=== PATIENT | male | born 1965 | race Caucasian/White ===

== ENCOUNTER 2017-04-30 20:58 | Emergency (ER) | payer OTHER ==
[~2017-04-30] VITALS: Ht 177.8 cm; Wt 156.8 kg
[~2017-04-30 20:58] MED LIST: ADVAIR DISK2 IN; ALBUTEROL S2.5 MG/.5 IN; ALBUTEROL SUL0.083 % IN; AMOX/K CLAV875 M1 PO; ANAPROX275 MG OR; BACTRIM DS1 TAB PO; BENTYL10 MG PO; CELEXA20 M1 PO; CEPHALEXIN500 M1 OR; CIPRO500 MG OR; CIPROFLOXACN500 MG PO; CLOBETASOL0.053 EX; DILTIAZEM120 M2 OR; DIPROLENE15 G1 TOP; DOXYCYC MONO100 M2 PO; DOXYCYCL HYC100 MG PO; EC-NAPROSYN500 MG OR; EMBEDA 20-0.8 M1 CAP PO; FLEXERIL PO; FLONASE NASAL50 MCG; FLOVENT HFA110 MCG IN; FLUCINONIDE TOP; FLUOCINONIDE0.051 EX; FLUOCINONIDE0.053 EX; FLUOCINONIDE0.054 TOP; HYDROCODONE BIT1 TA1 PO; HYDROCORT0.5 % EX; KEFLEX500 M1 PO; LASIX 10 MG10 MG/TA1 PO; LEVAQUIN750 MG PO; LIDOCAINE VISC20 ML EX; LORTAB 10 PO; LORTAB 5 OR; LORTAB 5/3255 MG PO; LORTAB 7.5 OR; LORTAB5 OR; MACROBID100 MG PO; MEDDOSEPAK OR; MEDDOSEPAK PO; METFORMIN500 MG PO; METO50TA52 PO; METOPROL TAR25 M1 PO; METOPROL TAR25 MG PO; METOPROLOL25 M1 PO; MORPHINE SUL30 M3 PO; MOTRIN800 MG OR; MUCINEX600 MG PO; NAPROSYN500 MG PO; NAPROXEN EC500 MG OR; NAPROXEN PO; NAPROXEN500 MG PO; NITROGLYCER0.1 MG/HR TD; NITROGLYCER0.4 MG SL; NITROGLYCERIN; NITROSTAT0.4 MG; NITROSTAT0.4 MG SL; NO MEDS; NO MORE TANG; NORCO1 TA1 PO; NORCO1 TAB; NORCO1 TAB PO; NYSTATIN100000 M1 PO; OXYCO/APAP1 TA5 PO; OXYCODONE HCL15 MG PO; OXYCODONE15 MG OR; PERCOCET 10/31 COMBO PO; PERCOCET 5/321 COMBO PO; PERCOCET 5/325M1 TAB PO; PERCOCET1 TA2 OR; PREDNISONE10 MG PO; PREDNISONE20 MG PO; PRILOSEC40 MG; PROVENTIL HFA IN; PROVENTIL INH17 GM IN; PROVENTIL0.083 % IN; RANITIDINE150 M1 PO; ROBITUSSIN AC10 ML PO; SIMETHICONE80 M2 PO; TETRACYCLINE250 MG PO; TOPAMAX100 MG PO; TOPAMAX200 MG OR; TRAMADOL HCL50 MG PO; TRIAMCINOLON0.11 EX; ULTRAM50 M1 PO; VENTOLIN HFA IN; VENTOLIN2 MG OR; VICODIN HP1 TA1 PO; ZANTAC150 MG OR; ZITHROMAX250 MG PO; ZITHROMAX500 MG PO; ZOFRAN4 MG OR; ZPAK OR; ZPAK PO; robitussin ac OR
[2017-04-30] MEDS ORDERED: LORTAB 10-325 M1 TAB PO (21:33)
[2017-04-30] MEDS ORDERED: MORPHINE SUL30 M3 PO (21:34)
[2017-04-30] MEDS ORDERED: LOPRESSOR 550 MG/TAB PO (21:35)
[2017-04-30] MEDS ORDERED: NAPROSYN500 MG PO (21:35)
[2017-04-30] MEDS ORDERED: TRIAMCINOLON OI80 GM TOP (21:39)
[2017-05-01 01:17] VITALS: BP 106/70
== END 2017-05-01 01:17 | disposition home or self-care (01) | DRG 93 ==
LOC: ED 20:58
DX: G89.29 Other chronic pain (principal); M54.5 Low back pain; V89.0XXA Person injured in unspecified motor-vehicle accident, nontraffic, initial encounter; Y93.89 Activity, other specified; Y92.481 Parking lot as the place of occurrence of the external cause

== ENCOUNTER 2017-05-31 01:45 | Emergency (ER) | payer OTHER ==
[~2017-05-31] VITALS: Ht 177.8 cm; Wt 154.6 kg
[~2017-05-31 01:45] MED LIST changes: +LOPRESSOR 550 MG/TAB PO; +LORTAB 10-325 M1 TAB PO; +TRIAMCINOLON OI80 GM TOP
[2017-05-31] MEDS ORDERED: Levaquin PO (02:41)
[2017-05-31 03:12] VITALS: BP 150/82
== END 2017-05-31 03:03 | disposition home or self-care (01) | DRG 153 ==
LOC: ED 01:45
DX: J32.9 Chronic sinusitis, unspecified (principal); E66.01 Morbid (severe) obesity due to excess calories; J44.9 Chronic obstructive pulmonary disease, unspecified; G89.29 Other chronic pain; R01.1 Cardiac murmur, unspecified; M54.9 Dorsalgia, unspecified; I25.2 Old myocardial infarction; M19.90 Unspecified osteoarthritis, unspecified site; G47.30 Sleep apnea, unspecified

== ENCOUNTER 2017-07-06 16:55 | Observation (INO) | payer OTHER ==
[~2017-07-06] VITALS: Ht 177.8 cm; Wt 150.0 kg
[~2017-07-06 16:55] MED LIST changes: +Levaquin PO
--- NOTE | 2017-07-06 17:03 | NUR ---
PATIENT TO ROOM VIA EMS AND PHYSICIAN AT BEDSIDE FOR EVALUATION
[2017-07-06] MEDS ORDERED: EMBEDA 20-0.8 M1 CAP PO (17:07)
[2017-07-06] MEDS ORDERED: PROVENTIL0.083 % IN (17:08)
--- NOTE | 2017-07-06 17:10 | NUR ---
PATIENT REPORTS 8/10 CRAMPING LOWER ABD PAIN. ABD SOFT GENERALIZED TENDERNESS NOTED TO ENTIRE ABD UPON PALPATION. PATIENT DENIES ANY SOB OR CP AT THIS TIME. PATIENT REPORTS A LOT OF DIARRHEA STARTING THIS AM. MD AT BEDSIDE TO EVALUATE PATIENT. PATIENT AWARE OF PLAN OF CARE AND WAIT TIME. CALL ELKINS WITHIN REACH, WILL CONTINUE TO MONITOR.
[2017-07-06 17:20] LABS: HEMATOCRIT 46.3 % (39.0-50.0); HEMOGLOBIN 16.1 g/dl (14.0-18.0); IMMATURE GRANULOCYTES 0.4 % (0.0-1.0); MEAN CELL VOLUME 90.3 fL CALC (80.0-100.0); MEAN CORPUSCULAR HGB 31.4 pG CALC (26.0-32.0); MEAN CORPUSCULAR HGB CONC 34.8 g/L CALC (32.0-36.0); NEUT# 10.36 thou/uL (1.82-7.42); RED BLOOD COUNT 5.13 mill/uL (4.70-6.10); RED CELL DISTRI WIDTH 12.6 % (11.5-15.5)
--- NOTE | 2017-07-06 17:40 | NUR ---
ASSISTED PATIENT TO BEDSIDE COMMODE. STOOL SPECIMEN COLLECTED. STOOL NOTED TO BE WATERY AND BROWN IN COLOR. PATIENT REPORTING PAIN IS NOW 3/10 AND DENIES ANY NAUSEA AT THIS TIME. PATIENT DENIES ANY SOB AT THIS TIME, PATIENT A&O X3. CALL ELKINS WITHIN REACH, WILL CONTINUE TO MONITOR.
--- NOTE | 2017-07-06 18:01 | NUR ---
RESPIRATORY AT BEDSIDE TO PLACE PATIENT ON BIPAP. WILL MONITOR FOR EFFECT.
[2017-07-06 18:34] LABS: ALKALINE PHOSPHATASE 104 u/l (38-126); AMYLASE 70 u/l (30-110); BILIRUBIN, TOTAL 0.8 mg/dL (0.0-1.4); BUN 29 mg/dL (9-20); BUN/CREATININE RATIO 29 (12-20 (CALC)); CALCIUM 9.4 mg/dL (8.4-10.2); CARBON DIOXIDE 26 mmol/l (22-30); CHLORIDE 100 mmol/l (95-108); GFR > 60 ML/MIN (>=60 (CALC)); GFR FOR AFR.AMER. > 60 ML/MIN (>=60 (CALC)); GLUCOSE 338 mg/dL (75-110); LIPASE 211 u/l (23-300); SGOT/AST 26 u/l (17-59); SGPT/ALT 34 u/l (21-72); SODIUM 135 mmol/l (137-146); TOTAL PROTEIN 8.1 g/dL (6.3-8.2)
[2017-07-06 18:36] LABS: ANION GAP 15 (6-22 (CALC)); POTASSIUM 5.5 mmol/l (3.5-5.1)
[2017-07-06 18:44] LABS: C. DIFFICILE TOXIN A&B NEGATIVE (NEGATIVE)
--- NOTE | 2017-07-06 18:53 | NUR ---
REPORT GIVEN TO RICH CARL LPN.
--- NOTE | 2017-07-06 18:55 | NUR ---
INTRODUCED SELF TO PT. PT CURRENTLY ON BIPAP PER RT SETTINGS. SPO2 AT 100%. AWAITING ON RADIOLOGY FOR PENDING CT.
[2017-07-06 19:01] LABS: URINE BLOOD DIPSTICK NEGATIVE (NEGATIVE); URINE CLARITY CLEAR; URINE COLOR YELLOW; URINE GLUCOSE - DIPSTICK >=1000 mg/dL (NEGATIVE); URINE KETONE NEGATIVE (NEGATIVE); URINE LEUK ESTERASE NEGATIVE (NEGATIVE); URINE NITRITE - DIPSTICK NEGATIVE (Negative); URINE PROTEIN - DIPSTICK TRACE mg/dL (NEG-TRACE); URINE SPECIFIC GRAVITY >=1.030; URINE UROBILINOGEN - DIPSTICK 0.2 E.U./dL (0.2)
[2017-07-06 19:04] LABS: URINE BILIRUBIN - DIPSTICK SMALL (NEGATIVE)
--- NOTE | 2017-07-06 19:20 | NUR ---
RT B/S FOR REPEAT ABG.
--- NOTE | 2017-07-06 20:24 | NUR ---
PT RESTING ON STRETCHER WITH EYES CLOSED. BIPAP MACHINE IN PLACE WITH SETTINGS PER RT. DENIES ANY NEEDS AT THIS TIME. AWAITING CT RESULTS.
--- NOTE | 2017-07-06 21:08 | NUR ---
admission history obtained; pt a&o X3; chief complaint of abd pain associated with nausea and diarrhea starting 07/06/17; states he has been having diarrhea all day; pt also states some chest pain on arrival to ER; pt points to left chest wall under breast; deny sob; medical hx reviewed; pt admits to sleep apnea but deny use of home cpap; pt also deny diabetes; plan of care/ meds explained; temporary hold in ER; will continue to monitor
[2017-07-06 21:27] LABS: COCAINE NEGATIVE (NEGATIVE)
[2017-07-06 21:28] LABS: BARBITURATES NEGATIVE (NEGATIVE); METHADONE NEGATIVE (NEGATIVE); OXCYCODONE POSITIVE (NEGATIVE); TETRAHYDROCANNABIONOL POSITIVE (NEGATIVE); TRICYLIC ANTIDEPRESSANTS NEGATIVE (NEGATIVE)
--- NOTE | 2017-07-06 21:31 | NUR ---
accucheck of 308; pt cont to deny being a diabetic; pt states his blood sugar is high when he is "dehydrated"; pt informed per medical writer he will be medicated with insulin as per orders; pt initially refused stating "I don't have diabetes"; this medical writer explained importance of controlled blood glucose and pt has agreed to accept levemir;
--- NOTE | 2017-07-06 21:39 | NUR ---
PT RESTING ON STRETCHER WITH BIPAP IN PLACE. DENIES ANY NEEDS AT THIS TIME. WILL CONTINUE TO MONITOR.
--- NOTE | 2017-07-06 22:08 | NUR ---
REPORT GIVEN TO RICH MILLER.
--- NOTE | 2017-07-06 22:28 | NUR ---
Admission Note Report Given to: RICH MILLER Transported by: Wheelchair X Stretcher Transported with: X Nurse X Transporter X Patent IV X O2 Senior Trial Attorney PT TRANSPORTED TO ICU VIA STRETCHER ACCOMPANIED BY RT AND RICH MILLER.
--- NOTE | 2017-07-06 22:30 | NUR ---
male pt transferred to ICU bed 1 via stretcher accompanied by web content writerNaz LPN and RT Armas in stable condition; pt deny ability to ambulate; admits to ambulating at home with cane (provided); pt then yells at staff stating "I'm in pain and you expect me to walk"; pt transferred self from stretcher to bed; assessment completed; pt alert and oriented; admits to aching/cramps to lower abd; no n/v noted per web content writer at this time; resp even and unlabored; slight sob noted with exertion; lungs clear/diminished bases; skin color wnl; bipap intact with 28% o2; hr reg; strong pulses; no edema noted; sb on monitor; abd soft/obese with bs present; pt admits to diarrhea; admits to voiding without complication; no urine to inspect at this time; #20 ems patent to lac with lr infusing as per orders; scabs/scratches noted to abd area and arms; pt refusing to remove jeans (unable to assess coccyx); plan of care explained; call light within reach; will continue to monitor
[2017-07-06 22:45] VITALS: BP 99/58
--- NOTE | 2017-07-06 22:45 | NUR ---
pt very frustrated with nursing staff; states "I've been here for 12 damn hours and no one has given me any more pain medicine"; this sign writer hand informed pt, Morphine ER was offered but refused; pt yells at sign writer hand "morphine is not for pain"; pt admits to taking Morphine ER to "bridge the gap" and taking hydrocodone for pain; pt threathens to leave AMA; pt rights reiterated; orders explained and lortab administered; pt then request metoprolol to be given at midnight; medication schedule explained; sign writer hand also explained bradycardia; pt states "well I'll just take one out of my bag"; home medications removed from room after verifying quantity of narcotics in view of pt; will continue to monitor
[2017-07-06 23:00] VITALS: BP 116/53
[2017-07-06 23:15] VITALS: BP 97/58
[2017-07-06 23:30] VITALS: BP 97/56
[2017-07-06 23:45] VITALS: BP 90/55
--- NOTE | 2017-07-06 23:59 | NUR ---
resting with eyes closed; no distress noted; resp even and unlabored; bipap maintained with 28% FiO2; iv patent; sb on monitor; call light within reach; will continue to monitor
[2017-07-07] VITALS (9 sets, daily range): BP systolic 82–130; BP diastolic 51–66
--- NOTE | 2017-07-07 02:03 | NUR ---
asleep; easily aroused for assessment of bp; deny needs; iv patent; no redness or edema noted at site; sb on monitor; bipap intact; call light within reach; will continue to monitor
--- NOTE | 2017-07-07 04:03 | NUR ---
asleep; easily aroused; no distress noted; pt offers no complaints; hydrocodone offered with refusal/ denies pain; po fluids provided as per request; iv patent; no redness or edema noted; sb on monitor; deny need to urinate; call light within reach; will continue to monitor
--- NOTE | 2017-07-07 05:07 | NUR ---
awake; requesting "a break from that mask"; bipap removed; po fluids provided;
--- NOTE | 2017-07-07 05:20 | NUR ---
laborer wood preserving plant at bedside
[2017-07-07 05:40] LABS: HEMATOCRIT 43.1 % (39.0-50.0); HEMOGLOBIN 14.6 g/dl (14.0-18.0); MEAN CELL VOLUME 92.7 fL CALC (80.0-100.0); MEAN CORPUSCULAR HGB 31.4 pG CALC (26.0-32.0); MEAN CORPUSCULAR HGB CONC 33.9 g/L CALC (32.0-36.0); RED BLOOD COUNT 4.65 mill/uL (4.70-6.10); RED CELL DISTRI WIDTH 12.8 % (11.5-15.5)
--- NOTE | 2017-07-07 05:41 | NUR ---
refusing bipap to be reapplied; o2 sat 91-95% ra; no resp distress noted
[2017-07-07 05:49] LABS: ANION GAP 14 (6-22 (CALC)); BUN 29 mg/dL (9-20); BUN/CREATININE RATIO 37 (12-20 (CALC)); CALCIUM 8.7 mg/dL (8.4-10.2); CARBON DIOXIDE 25 mmol/l (22-30); CHLORIDE 101 mmol/l (95-108); CREATININE 0.8 mg/dL (0.7-1.3); GFR > 60 ML/MIN (>=60 (CALC)); GFR FOR AFR.AMER. > 60 ML/MIN (>=60 (CALC)); GLUCOSE 253 mg/dL (75-110); MAGNESIUM 1.2 mg/dL (1.6-2.3); POTASSIUM 4.6 mmol/l (3.5-5.1); SODIUM 136 mmol/l (137-146)
--- NOTE | 2017-07-07 06:03 | NUR ---
awake; no distress noted throughout the night; ra; o2 sat 92%; iv patent; sr on monitor; bed in lowest position; call light within reach
--- NOTE | 2017-07-07 06:45 | NUR ---
REPORT RECEIVED FROM RICH MILLER. PT ON BSC, ABLE TO INDEPENDANTLY GET BACK TO BED. DENIES, PAIN, SOB OR DISCOMFORT. VSS. SAFETY REVIEWED, CALL LIGHT WITHIN REACH. INSTRUCTED PT TO CALL FOR ASSISTANCE. PT VERBALIZES UNDERSTANDING.
--- NOTE | 2017-07-07 09:25 | NUR ---
MD IN TO SEE PT AT THIS TIME, DM DISCUSSED AT LENGTH. METFORMIN ORDERED. EDUCATION PRINTED FOR PT AT THIS TIME.
--- NOTE | 2017-07-07 10:30 | NUR ---
PT INFORMED OF DISCHARGE. TELLO PATEL IN TO SEE PT, AND ORDER GLUCOMETER WITH LANCETS AND STRIPS.
[2017-07-07 11:08] LABS: CHOLESTEROL HDL RATIO 4.4 (<4.4 (CALC))
--- NOTE | 2017-07-07 12:45 | NUR ---
PT RESTING WITH EYES CLOSED DENIES PAIN, SOB, OR DISCOMFORT. CALL LIGHT WITHIN REACH. WILL CONTINUE TO MONITOR.
[2017-07-07] MEDS ORDERED: FLORASTOR250 M1 PO (13:14)
[2017-07-07] MEDS ORDERED: ZITHROMAX500 MG PO (13:14)
[2017-07-07] MEDS ORDERED: GLUCOPHAGE500 MG PO (13:14)
--- NOTE | 2017-07-07 16:15 | NUR ---
PT REQUESTING PAIN MEDICATION AT THIS TIME FOR GENERALIZED BACK PAIN; INQUIRED ABOUT RIDE FOR DISCHARGE, WILL HAVE TO WAIT UNTIL AFTER 1700 FOR RIDE R/T WORK SCHEDULES.
--- NOTE | 2017-07-07 18:32 | NUR ---
Discharge instructions given. Patient verbalizes understanding of same. Discharged in stable condition via Wheelchair to Home with family. All belongings sent with pt.
== END 2017-07-07 18:40 | disposition home or self-care (01) | DRG 372 ==
LOC: ED 16:55 → ED-I 20:41 → ED 21:07 → ICU 21:08
PROVIDERS: Emergency Medicine; Nurse Practitioner Family; ADMIT Internal Medicine; ATTEND Internal Medicine
PROC: 5A09357 Assistance with Respiratory Ventilation, Less than 24 Consecutive Hours, Continuous Positive Airway Pressure (ICD-10-PCS; principal; 2017-07-06)
DX: A04.5 Campylobacter enteritis (principal); Z68.42 Body mass index [BMI] 45.0-49.9, adult; J44.9 Chronic obstructive pulmonary disease, unspecified; J96.10 Chronic respiratory failure, unspecified whether with hypoxia or hypercapnia; G47.33 Obstructive sleep apnea (adult) (pediatric); E66.01 Morbid (severe) obesity due to excess calories; R01.1 Cardiac murmur, unspecified; E11.9 Type 2 diabetes mellitus without complications; M16.10 Unilateral primary osteoarthritis, unspecified hip; I10 Essential (primary) hypertension; K21.9 Gastro-esophageal reflux disease without esophagitis; Z91.19 Patient's noncompliance with other medical treatment and regimen
CPT/HCPCS: J3475; Q9967

== ENCOUNTER 2017-11-27 14:20 | Emergency (ER) | payer OTHER ==
[~2017-11-27] VITALS: Ht 177.8 cm; Wt 112.0 kg
[~2017-11-27 14:20] MED LIST changes: +FLORASTOR250 M1 PO; +GLUCOPHAGE500 MG PO
[2017-11-27 15:39] LABS: URINE BILIRUBIN - DIPSTICK NEGATIVE (NEGATIVE); URINE BLOOD DIPSTICK NEGATIVE (NEGATIVE); URINE COLOR YELLOW; URINE GLUCOSE - DIPSTICK 250 mg/dL (NEGATIVE); URINE KETONE TRACE mg/dL (NEGATIVE); URINE LEUK ESTERASE NEGATIVE (NEGATIVE); URINE NITRITE - DIPSTICK NEGATIVE (Negative); URINE PROTEIN - DIPSTICK TRACE mg/dL (NEG-TRACE); URINE SPECIFIC GRAVITY >=1.030; URINE UROBILINOGEN - DIPSTICK 0.2 E.U./dL (0.2)
[2017-11-27 15:40] LABS: URINE CLARITY CLEAR
[2017-11-27] MEDS ORDERED: PYRIDIUM200 MG PO (16:41)
[2017-11-27] MEDS ORDERED: BACTRIM DS1 TAB PO (16:41)
[2017-11-27 17:16] VITALS: BP 122/68
== END 2017-11-27 17:08 | disposition home or self-care (01) | DRG 690 ==
LOC: ED 14:20
PROVIDERS: Emergency Medicine
DX: N34.2 Other urethritis (principal); J43.9 Emphysema, unspecified; J45.909 Unspecified asthma, uncomplicated; Z87.440 Personal history of urinary (tract) infections; R30.9 Painful micturition, unspecified

== ENCOUNTER 2017-12-25 09:23 | Emergency (ER) | payer OTHER ==
[~2017-12-25] VITALS: Ht 177.8 cm; Wt 147.0 kg
[~2017-12-25 09:23] MED LIST changes: +PYRIDIUM200 MG PO
[2017-12-25 09:35] VITALS: BP 109/71
[2017-12-25 10:22] LABS: HEMATOCRIT 45.6 % (39.0-50.0); HEMOGLOBIN 15.8 g/dl (14.0-18.0); IMMATURE GRANULOCYTES 0.4 % (0.0-1.0); MEAN CELL VOLUME 93.8 fL CALC (80.0-100.0); MEAN CORPUSCULAR HGB 32.5 pG CALC (26.0-32.0); MEAN CORPUSCULAR HGB CONC 34.6 g/L CALC (32.0-36.0); NEUT# 6.36 thou/uL (1.82-7.42); RED BLOOD COUNT 4.86 mill/uL (4.70-6.10); RED CELL DISTRI WIDTH 13.3 % (11.5-15.5)
[2017-12-25 10:44] LABS: ALBUMIN 3.6 g/dL (3.2-5.0); ALKALINE PHOSPHATASE 83 u/l (38-126); AMYLASE 73 u/l (30-110); ANION GAP 17 (6-22 (CALC)); BILIRUBIN, TOTAL 0.9 mg/dL (0.0-1.4); BUN 16 mg/dL (9-20); BUN/CREATININE RATIO 19 (12-20 (CALC)); CARBON DIOXIDE 28 mmol/l (22-30); CHLORIDE 99 mmol/l (95-108); CREATININE 0.8 mg/dL (0.7-1.3); GFR > 60 ML/MIN (>=60 (CALC)); GFR FOR AFR.AMER. > 60 ML/MIN (>=60 (CALC)); LIPASE 384 u/l (23-300); POTASSIUM 3.7 mmol/l (3.5-5.1); SGOT/AST 23 u/l (17-59); SGPT/ALT 42 u/l (21-72); SODIUM 140 mmol/l (137-146)
[2017-12-25] MEDS ORDERED: PHENERGAN25 MG/TAB PO (12:55)
[2017-12-25] MEDS ORDERED: BENTYL10 MG PO (12:55)
== END 2017-12-25 13:38 | disposition home or self-care (01) | DRG 392 ==
LOC: ED 09:23
PROVIDERS: Family Medicine
DX: A08.4 Viral intestinal infection, unspecified (principal); J45.901 Unspecified asthma with (acute) exacerbation; R10.84 Generalized abdominal pain

== ENCOUNTER 2018-03-20 15:31 | Emergency (ER) | payer OTHER ==
[~2018-03-20] VITALS: Ht 177.8 cm; Wt 110.0 kg
[~2018-03-20 15:31] MED LIST changes: +PHENERGAN25 MG/TAB PO
[2018-03-20 16:14] LABS: URINE BILIRUBIN - DIPSTICK NEGATIVE (NEGATIVE); URINE BLOOD DIPSTICK NEGATIVE (NEGATIVE); URINE CLARITY CLEAR; URINE COLOR YELLOW; URINE GLUCOSE - DIPSTICK 500 mg/dL (NEGATIVE); URINE KETONE TRACE mg/dL (NEGATIVE); URINE LEUK ESTERASE NEGATIVE (NEGATIVE); URINE NITRITE - DIPSTICK NEGATIVE (Negative); URINE PROTEIN - DIPSTICK NEGATIVE (NEG-TRACE); URINE UROBILINOGEN - DIPSTICK 0.2 E.U./dL (0.2)
[2018-03-20] MEDS ORDERED: APAP/HYDRO325 MG/10 PO (16:18)
[2018-03-20] MEDS ORDERED: PYRIDIUM200 MG PO (16:24)
[2018-03-20] MEDS ORDERED: ZITHROMAX500 MG PO (16:37)
[2018-03-20] MEDS ORDERED: MEDDOSEPAK PO (16:37)
[2018-03-20 16:39] VITALS: BP 127/79
== END 2018-03-20 16:39 | disposition home or self-care (01) ==
LOC: ED 15:31
DX: R30.0 Dysuria (principal); R21 Rash and other nonspecific skin eruption; J45.909 Unspecified asthma, uncomplicated; Z79.891 Long term (current) use of opiate analgesic

== ENCOUNTER 2018-06-18 10:56 | Observation (INO) | payer OTHER ==
[~2018-06-18] VITALS: Ht 177.8 cm; Wt 149.2 kg
[~2018-06-18 10:56] MED LIST changes: +APAP/HYDRO325 MG/10 PO
[2018-06-18] MEDS ORDERED: DOXYCYCL HYC100 MG PO (11:05)
[2018-06-18 11:47] LABS: HEMATOCRIT 39.8 % (39.0-50.0); IMMATURE GRANULOCYTES 0.4 % (0.0-5.0); MEAN CELL VOLUME 92.6 fL CALC (80.0-100.0); MEAN CORPUSCULAR HGB 31.2 pG CALC (26.0-32.0); MEAN CORPUSCULAR HGB CONC 33.7 g/L CALC (32.0-36.0); NEUT# 8.27 thou/uL (1.82-7.42); RED BLOOD COUNT 4.3 mill/uL (4.70-6.10); RED CELL DISTRI WIDTH 12.7 % (11.5-15.5)
[2018-06-18 11:54] LABS: HEMOGLOBIN 13.4 g/dl (14.0-18.0)
[2018-06-18 12:02] LABS: ALBUMIN 3.4 g/dL (3.2-5.0); ALKALINE PHOSPHATASE 102 u/l (38-126); ANION GAP 12 (6-22 (CALC)); BILIRUBIN, TOTAL 0.7 mg/dL (0.0-1.4); BUN 18 mg/dL (9-20); BUN/CREATININE RATIO 22 (12-20 (CALC)); CARBON DIOXIDE 31 mmol/l (22-30); CHLORIDE 99 mmol/l (95-108); CREATININE 0.8 mg/dL (0.7-1.3); GFR > 60 ML/MIN (>=60 (CALC)); GFR FOR AFR.AMER. > 60 ML/MIN (>=60 (CALC)); POTASSIUM 4.1 mmol/l (3.5-5.1); SGOT/AST 27 u/l (17-59); SODIUM 138 mmol/l (137-146); TOTAL PROTEIN 6.9 g/dL (6.3-8.2)
[2018-06-18 15:14] VITALS: BP 124/70
[2018-06-18 19:40] VITALS: BP 97/51
[2018-06-19] VITALS (11 sets, daily range): BP systolic 98–156; BP diastolic 51–107
[2018-06-19 05:42] LABS: HEMATOCRIT 38.6 % (39.0-50.0); HEMOGLOBIN 12.8 g/dl (14.0-18.0); IMMATURE GRANULOCYTES 0.6 % (0.0-5.0); MEAN CELL VOLUME 94.1 fL CALC (80.0-100.0); MEAN CORPUSCULAR HGB 31.2 pG CALC (26.0-32.0); MEAN CORPUSCULAR HGB CONC 33.2 g/L CALC (32.0-36.0); NEUT# 4.2 thou/uL (1.82-7.42); RED BLOOD COUNT 4.1 mill/uL (4.70-6.10); RED CELL DISTRI WIDTH 12.5 % (11.5-15.5)
[2018-06-19 06:04] LABS: ALBUMIN 3.2 g/dL (3.2-5.0); ALKALINE PHOSPHATASE 82 u/l (38-126); ANION GAP 10 (6-22 (CALC)); BILIRUBIN, TOTAL 0.4 mg/dL (0.0-1.4); BUN 15 mg/dL (9-20); BUN/CREATININE RATIO 22 (12-20 (CALC)); CARBON DIOXIDE 34 mmol/l (22-30); CHLORIDE 98 mmol/l (95-108); CREATININE 0.7 mg/dL (0.7-1.3); GFR > 60 ML/MIN (>=60 (CALC)); GFR FOR AFR.AMER. > 60 ML/MIN (>=60 (CALC)); MAGNESIUM 1.3 mg/dL (1.6-2.3); SGOT/AST 21 u/l (17-59); SODIUM 138 mmol/l (137-146); TOTAL PROTEIN 6.5 g/dL (6.3-8.2)
[2018-06-19 17:53] LABS: CHOLESTEROL HDL RATIO 3.5 (<4.4 (CALC))
[2018-06-20 05:11] VITALS: BP 106/69
[2018-06-20 07:50] VITALS: BP 174/83
[2018-06-20 08:43] VITALS: BP 174/83
[2018-06-20 09:25] LABS: HEMOGLOBIN 13.3 g/dl (14.0-18.0); MEAN CELL VOLUME 93.2 fL CALC (80.0-100.0); MEAN CORPUSCULAR HGB CONC 33.3 g/L CALC (32.0-36.0); RED BLOOD COUNT 4.29 mill/uL (4.70-6.10); RED CELL DISTRI WIDTH 12.5 % (11.5-15.5)
[2018-06-20 09:30] LABS: ANION GAP 12 (6-22 (CALC)); BUN 9 mg/dL (9-20); BUN/CREATININE RATIO 13 (12-20 (CALC)); CARBON DIOXIDE 33 mmol/l (22-30); CHLORIDE 95 mmol/l (95-108); CREATININE 0.7 mg/dL (0.7-1.3); GFR > 60 ML/MIN (>=60 (CALC)); GFR FOR AFR.AMER. > 60 ML/MIN (>=60 (CALC)); MAGNESIUM 1.5 mg/dL (1.6-2.3); POTASSIUM 4.3 mmol/l (3.5-5.1); SODIUM 137 mmol/l (137-146)
[2018-06-20] MEDS ORDERED: DOXYCYCL HYC100 MG PO (12:59)
[2018-06-20] MEDS ORDERED: NAPROSYN500 MG PO (12:59)
[2018-06-20] MEDS ORDERED: JANUVIA100 MG PO (13:08)
== END 2018-06-20 14:40 | disposition home or self-care (01) ==
LOC: ED 10:56 → ED-I 13:25 → ED 14:04 → MS2 14:05
PROVIDERS: Emergency Medicine; Nurse Practitioner Family; ADMIT Internal Medicine Nephrology; ATTEND Internal Medicine Nephrology
DX: L02.413 Cutaneous abscess of right upper limb (principal); L03.113 Cellulitis of right upper limb; E66.01 Morbid (severe) obesity due to excess calories; Z68.42 Body mass index [BMI] 45.0-49.9, adult; E11.65 Type 2 diabetes mellitus with hyperglycemia; I10 Essential (primary) hypertension; G47.33 Obstructive sleep apnea (adult) (pediatric); J44.9 Chronic obstructive pulmonary disease, unspecified; E83.42 Hypomagnesemia; M16.0 Bilateral primary osteoarthritis of hip; Z79.891 Long term (current) use of opiate analgesic; B95.61 Methicillin susceptible Staphylococcus aureus infection as the cause of diseases classified elsewhere; Z91.19 Patient's noncompliance with other medical treatment and regimen
CPT/HCPCS: G0378; J1650; J3370; J3475; Q9967

== ENCOUNTER 2018-06-23 11:24 | Emergency (ER) | payer OTHER ==
[~2018-06-23] VITALS: Ht 177.8 cm; Wt 147.0 kg
[~2018-06-23 11:24] MED LIST changes: +JANUVIA100 MG PO
[2018-06-23 13:16] VITALS: BP 134/86
== END 2018-06-23 13:16 | disposition home or self-care (01) ==
LOC: ED 11:24
DX: Z48.01 Encounter for change or removal of surgical wound dressing (principal)

== ENCOUNTER 2018-06-25 10:17 | Emergency (ER) | payer OTHER ==
[~2018-06-25] VITALS: Ht 177.8 cm; Wt 149.1 kg
[2018-06-25 11:16] VITALS: BP 131/72
== END 2018-06-25 11:16 | disposition home or self-care (01) ==
LOC: ED 10:17
DX: Z48.01 Encounter for change or removal of surgical wound dressing (principal)

== ENCOUNTER 2018-06-28 22:30 | Emergency (ER) | payer OTHER ==
[~2018-06-28] VITALS: Ht 177.8 cm; Wt 152.0 kg
[2018-06-28 23:30] VITALS: BP 154/70
== END 2018-06-28 23:30 | disposition home or self-care (01) ==
LOC: ED 22:30
DX: T63.301D Toxic effect of unspecified spider venom, accidental (unintentional), subsequent encounter (principal)

== ENCOUNTER 2018-07-02 10:12 | Emergency (ER) | payer OTHER ==
[~2018-07-02] VITALS: Ht 177.8 cm; Wt 149.0 kg
[2018-07-02 11:17] VITALS: BP 136/73
== END 2018-07-02 11:17 | disposition home or self-care (01) ==
LOC: ED 10:12
DX: Z48.01 Encounter for change or removal of surgical wound dressing (principal)

== ENCOUNTER 2018-07-06 17:31 | Emergency (ER) | payer OTHER ==
[~2018-07-06] VITALS: Ht 177.8 cm; Wt 136.4 kg
[2018-07-06 18:10] VITALS: BP 118/63
== END 2018-07-06 18:18 | disposition home or self-care (01) ==
LOC: ED 17:31
DX: Z48.01 Encounter for change or removal of surgical wound dressing (principal)

== ENCOUNTER 2018-07-14 21:58 | Emergency (ER) | payer OTHER ==
[~2018-07-14] VITALS: Ht 177.8 cm; Wt 142.0 kg
[2018-07-14 22:49] LABS: HEMATOCRIT 42.4 % (39.0-50.0); HEMOGLOBIN 14.5 g/dl (14.0-18.0); IMMATURE GRANULOCYTES 0.3 % (0.0-5.0); MEAN CELL VOLUME 90.4 fL CALC (80.0-100.0); MEAN CORPUSCULAR HGB 30.9 pG CALC (26.0-32.0); MEAN CORPUSCULAR HGB CONC 34.2 g/L CALC (32.0-36.0); NEUT# 4.33 thou/uL (1.82-7.42); RED BLOOD COUNT 4.69 mill/uL (4.70-6.10); RED CELL DISTRI WIDTH 12.7 % (11.5-15.5)
[2018-07-14 23:00] LABS: ALKALINE PHOSPHATASE 76 u/l (38-126); ANION GAP 13 (6-22 (CALC)); BILIRUBIN, TOTAL 0.9 mg/dL (0.0-1.4); BUN 14 mg/dL (9-20); BUN/CREATININE RATIO 13 (12-20 (CALC)); CARBON DIOXIDE 31 mmol/l (22-30); CHLORIDE 99 mmol/l (95-108); CREATININE 1.1 mg/dL (0.7-1.3); GFR > 60 ML/MIN (>=60 (CALC)); GFR FOR AFR.AMER. > 60 ML/MIN (>=60 (CALC)); POTASSIUM 3.6 mmol/l (3.5-5.1); SGOT/AST 25 u/l (17-59); SODIUM 140 mmol/l (137-146)
[2018-07-14 23:04] LABS: TOTAL PROTEIN 8.1 g/dL (6.3-8.2)
[2018-07-14 23:12] LABS: MYOGLOBIN 70 ng/mL (0 - 121)
[2018-07-14 23:35] LABS: TSH, 3RD GENERATION 1.58 uIU/mL (0.47 - 4.68)
[2018-07-15 06:43] VITALS: BP 128/54
== END 2018-07-15 09:02 | disposition home or self-care (01) ==
LOC: ED 21:58
PROVIDERS: Emergency Medicine
DX: R07.89 Other chest pain (principal); J43.9 Emphysema, unspecified; J45.909 Unspecified asthma, uncomplicated

== ENCOUNTER 2018-07-18 13:38 | Emergency (ER) | payer OTHER ==
[~2018-07-18] VITALS: Ht 177.8 cm; Wt 142.0 kg
[2018-07-18] MEDS ORDERED: HYDROCODONE/ACE1 TAB PO (14:10)
[2018-07-18 14:47] LABS: INFLUENZA A NONE DETECTED (NONE DETECT); INFLUENZA B NONE DETECTED (NONE DETECT)
[2018-07-18] MEDS ORDERED: ZITHROMAX250 MG PO (15:07)
[2018-07-18] MEDS ORDERED: PROVENTIL108 MCG/AC IN (15:07)
[2018-07-18 15:30] VITALS: BP 121/71
== END 2018-07-18 15:30 | disposition home or self-care (01) ==
LOC: ED 13:38
PROVIDERS: Emergency Medicine
DX: J06.9 Acute upper respiratory infection, unspecified (principal); J43.9 Emphysema, unspecified; J45.909 Unspecified asthma, uncomplicated; R05 Cough; R09.89 Other specified symptoms and signs involving the circulatory and respiratory systems; R07.9 Chest pain, unspecified

== ENCOUNTER 2018-07-31 11:33 | Emergency (ER) | payer OTHER ==
[~2018-07-31] VITALS: Ht 177.8 cm; Wt 136.0 kg
[~2018-07-31 11:33] MED LIST changes: +HYDROCODONE/ACE1 TAB PO; +PROVENTIL108 MCG/AC IN
[2018-07-31 12:21] LABS: HEMATOCRIT 38.1 % (39.0-50.0); HEMOGLOBIN 12.9 g/dl (14.0-18.0); IMMATURE GRANULOCYTES 0.3 % (0.0-5.0); MEAN CELL VOLUME 90.7 fL CALC (80.0-100.0); MEAN CORPUSCULAR HGB 30.7 pG CALC (26.0-32.0); MEAN CORPUSCULAR HGB CONC 33.9 g/L CALC (32.0-36.0); NEUT# 10.69 thou/uL (1.82-7.42); RED BLOOD COUNT 4.2 mill/uL (4.70-6.10); RED CELL DISTRI WIDTH 12.6 % (11.5-15.5)
[2018-07-31 12:43] LABS: ALBUMIN 3.3 g/dL (3.2-5.0); AMYLASE 718 u/l (30-110); ANION GAP 11 (6-22 (CALC)); BILIRUBIN, TOTAL 4.5 mg/dL (0.0-1.4); BUN 8 mg/dL (9-20); BUN/CREATININE RATIO 10 (12-20 (CALC)); CARBON DIOXIDE 32 mmol/l (22-30); CHLORIDE 98 mmol/l (95-108); CREATININE 0.8 mg/dL (0.7-1.3); GFR > 60 ML/MIN (>=60 (CALC)); GFR FOR AFR.AMER. > 60 ML/MIN (>=60 (CALC)); SODIUM 138 mmol/l (137-146)
[2018-07-31 12:45] LABS: ALKALINE PHOSPHATASE 209 u/l (38-126); SGOT/AST 127 u/l (17-59)
[2018-07-31 12:51] LABS: LIPASE 14463 u/l (23-300)
[2018-07-31 12:54] LABS: MYOGLOBIN 48 ng/mL (0 - 121)
[2018-07-31] MEDS ORDERED: NAPROXEN375 MG PO (13:50)
[2018-07-31 16:27] LABS: URINE BILIRUBIN - DIPSTICK MODERATE (NEGATIVE); URINE BLOOD DIPSTICK TRACE-INTACT (NEGATIVE); URINE CLARITY CLEAR; URINE COLOR DK. YELLOW; URINE GLUCOSE - DIPSTICK NEGATIVE (NEGATIVE); URINE KETONE NEGATIVE (NEGATIVE); URINE LEUK ESTERASE NEGATIVE (NEGATIVE); URINE NITRITE - DIPSTICK NEGATIVE (Negative); URINE PROTEIN - DIPSTICK NEGATIVE (NEG-TRACE); URINE SPECIFIC GRAVITY <=1.005
[2018-07-31 16:55] VITALS: BP 127/57
== END 2018-07-31 16:55 | disposition short-term general hospital (02) ==
LOC: ED 11:33
PROVIDERS: Emergency Medicine
DX: K85.90 Acute pancreatitis without necrosis or infection, unspecified (principal); K81.9 Cholecystitis, unspecified; J44.9 Chronic obstructive pulmonary disease, unspecified; E80.6 Other disorders of bilirubin metabolism; E87.6 Hypokalemia; R10.84 Generalized abdominal pain; R07.9 Chest pain, unspecified
CPT/HCPCS: S0164

== ENCOUNTER 2018-08-09 23:57 | Emergency (ER) | payer OTHER ==
[~2018-08-09] VITALS: Ht 177.8 cm; Wt 140.0 kg
[~2018-08-09 23:57] MED LIST changes: +NAPROXEN375 MG PO
[2018-08-10 00:49] VITALS: BP 115/59
== END 2018-08-10 00:49 | disposition home or self-care (01) ==
LOC: ED 23:57
DX: J45.909 Unspecified asthma, uncomplicated (principal); Z48.01 Encounter for change or removal of surgical wound dressing; R06.02 Shortness of breath; R50.9 Fever, unspecified

== ENCOUNTER 2018-09-23 09:39 | Emergency (ER) | payer OTHER ==
[~2018-09-23] VITALS: Ht 177.8 cm; Wt 144.5 kg
[2018-09-23 10:19] LABS: HEMATOCRIT 40.7 % (39.0-50.0); HEMOGLOBIN 13.5 g/dl (14.0-18.0); IMMATURE GRANULOCYTES 0.4 % (0.0-5.0); MEAN CELL VOLUME 92.1 fL CALC (80.0-100.0); MEAN CORPUSCULAR HGB 30.5 pG CALC (26.0-32.0); MEAN CORPUSCULAR HGB CONC 33.2 g/L CALC (32.0-36.0); NEUT# 4.52 thou/uL (1.82-7.42); RED BLOOD COUNT 4.42 mill/uL (4.70-6.10); RED CELL DISTRI WIDTH 12.9 % (11.5-15.5)
[2018-09-23 10:36] LABS: ANION GAP 15 (6-22 (CALC)); BUN 22 mg/dL (9-20); BUN/CREATININE RATIO 22 (12-20 (CALC)); CARBON DIOXIDE 29 mmol/l (22-30); CHLORIDE 99 mmol/l (95-108); GFR > 60 ML/MIN (>=60 (CALC)); GFR FOR AFR.AMER. > 60 ML/MIN (>=60 (CALC)); SODIUM 139 mmol/l (137-146)
[2018-09-23 10:37] LABS: POTASSIUM 4.2 mmol/l (3.5-5.1)
[2018-09-23] MEDS ORDERED: MS CONTIN30 MG PO (10:51)
[2018-09-23] MEDS ORDERED: DOXYCYC MONO100 M1 PO (11:52)
[2018-09-23] MEDS ORDERED: LASIX 40 MG TAB40 MG PO (11:53)
[2018-09-23 11:59] VITALS: BP 132/79
== END 2018-09-23 12:44 | disposition home or self-care (01) ==
LOC: ED 09:39
PROVIDERS: Family Medicine
DX: I50.9 Heart failure, unspecified (principal); L03.113 Cellulitis of right upper limb; R22.33 Localized swelling, mass and lump, upper limb, bilateral; R22.43 Localized swelling, mass and lump, lower limb, bilateral; R94.31 Abnormal electrocardiogram [ECG] [EKG]

== ENCOUNTER 2018-10-31 23:54 | Inpatient (IN) | payer OTHER ==
[~2018-10-31] VITALS: Ht 172.7 cm; Wt 148.0 kg
[~2018-10-31 23:54] MED LIST changes: +DOXYCYC MONO100 M1 PO; +LASIX 40 MG TAB40 MG PO; +MS CONTIN30 MG PO
[2018-11-01] VITALS (17 sets, daily range): BP systolic 97–159; BP diastolic 47–77
--- NOTE | 2018-11-01 | NUR ---
BY W/C TO ROOM
--- NOTE | 2018-11-01 00:20 | NUR ---
PT REFUSED FLU SWAB. STATES HE IS ONLY HERE FOR A BREATHING TREATMENT
[2018-11-01 00:31] LABS: HEMATOCRIT 35.1 % (39.0-50.0); IMMATURE GRANULOCYTES 0.5 % (0.0-5.0); MEAN CELL VOLUME 91.9 fL CALC (80.0-100.0); MEAN CORPUSCULAR HGB 30.1 pG CALC (26.0-32.0); MEAN CORPUSCULAR HGB CONC 32.8 g/L CALC (32.0-36.0); NEUT# 5.82 thou/uL (1.82-7.42); RED BLOOD COUNT 3.82 mill/uL (4.70-6.10)
--- NOTE | 2018-11-01 00:33 | NUR ---
PT PLACED ON NC AT 2 LPM. SAT INCREASED TO 93%
[2018-11-01 00:36] LABS: HEMOGLOBIN 11.5 g/dl (14.0-18.0)
[2018-11-01 00:52] LABS: PROTHROMBIN TIME 10.6 SECONDS (9.0-12.5)
[2018-11-01 00:54] LABS: ALBUMIN 3.5 g/dL (3.2-5.0); ALKALINE PHOSPHATASE 116 u/l (38-126); ANION GAP 13 (6-22 (CALC)); BUN 13 mg/dL (9-20); BUN/CREATININE RATIO 17 (12-20 (CALC)); CARBON DIOXIDE 31 mmol/l (22-30); CHLORIDE 95 mmol/l (95-108); CREATININE 0.8 mg/dL (0.7-1.3); GFR > 60 ML/MIN (>=60 (CALC)); GFR FOR AFR.AMER. > 60 ML/MIN (>=60 (CALC)); POTASSIUM 3.5 mmol/l (3.5-5.1); SGOT/AST 34 u/l (17-59); SODIUM 136 mmol/l (137-146); TOTAL PROTEIN 7.5 g/dL (6.3-8.2)
[2018-11-01 01:06] LABS: MYOGLOBIN 43 ng/mL (0 - 121)
--- NOTE | 2018-11-01 02:00 | NUR ---
PT SLEEPING AT INTERVALS. VSS. PT BREATHING EASIER.
--- NOTE | 2018-11-01 03:03 | NUR ---
PT VOIDED 500 CC OF LAURA URINE. SAMPLE SENT TO LAB.
--- NOTE | 2018-11-01 03:12 | NUR ---
REPORT TO [facility]. PT SLEEPING INTERMITTENTLY. VSS.
[2018-11-01 03:15] LABS: URINE BILIRUBIN - DIPSTICK NEGATIVE (NEGATIVE); URINE BLOOD DIPSTICK SMALL (NEGATIVE); URINE COLOR YELLOW; URINE GLUCOSE - DIPSTICK >=1000 mg/dL (NEGATIVE); URINE KETONE NEGATIVE (NEGATIVE); URINE LEUK ESTERASE NEGATIVE (NEGATIVE); URINE NITRITE - DIPSTICK NEGATIVE (Negative); URINE PROTEIN - DIPSTICK NEGATIVE (NEG-TRACE); URINE SPECIFIC GRAVITY 1.015; URINE UROBILINOGEN - DIPSTICK 0.2 E.U./dL (0.2)
[2018-11-01 03:18] LABS: BARBITURATES NEGATIVE (NEGATIVE); COCAINE NEGATIVE (NEGATIVE); METHADONE NEGATIVE (NEGATIVE); OXCYCODONE NEGATIVE (NEGATIVE); TETRAHYDROCANNABIONOL NEGATIVE (NEGATIVE); TRICYLIC ANTIDEPRESSANTS NEGATIVE (NEGATIVE)
[2018-11-01 03:25] LABS: URINE SQUAMOUS EPITHELIAL CELL FEW EPI/hpf (0-FEW)
--- NOTE | 2018-11-01 03:25 | NUR ---
TO ICU ON O2 NC AT 2 LPM/MONITOR. SHIRT SHOES CANE TO FLOOR WITH PT. PT VERY IRRITABLE UPON ARRIVAL TO FLOOR.
--- NOTE | 2018-11-01 03:26 | NUR ---
PT ARRIVED TO UNIT VIA STRETCHER WITH ER STAFF; PT ASKED IF HE WAS ABLE TO AMBULATE FROM STRETCHER TO BED AND PT BECAME VERY IRRITATED AND STATES, "I WAS JUST ASLEEP! YA'LL KEEP WAKING ME UP AND ASKING ME QUESTION AFTER QUESTION IM TIRED OF IT." PT ASKED TO SLIDE HIMSELF FROM STRETCHER TO BED. PT ACTS EXASPERATED AND LOG ROLLS HIMSELF ONTO THE BED. CURRENTLY ON 2L OXYGEN VIA NC. PT THEN STATES, "I NEED MY PAIN PILL, MY LAST ONE IS ALREADY WEARING OFF." TAKES LORTAB FOR CHRONIC HIP PAIN. RESPIRATIONS EVEN AND UNLABORED. PT MADE AWARE THAT HE WILL HAVE TO ANSWER ADMISSION QUESTIONS AND IS COMPLIANT ANSWERS ALL QUESTIONS. STATES THAT HE IS A DIABETIC, BUT HAS NOT TAKEN HIS JANUVIA BECAUSE "THE DOCTOR HAS NOT REORDERED IT." REPORTS BURNING WITH URINATION AND STATES, "BUT IT'S BEEN LIKE THAT FOR 3 YEARS AND THE DOCTOR HASN'T DONE ANYTHING ABOUT IT." PLAN OF CARE REVIEWED; PT DOES NOT APPEAR INTERESTED IN DISCUSSING PLAN OR TEACHING AT THIS TIME. ORIENTED TO ROOM AND CALL LIGHT SYSTEM. SAFETY MEASURES IN PLACE. CALL LIGHT WITHIN REACH.
--- NOTE | 2018-11-01 03:45 | NUR ---
RT IN TO APPLY BIPAP; PT ADAMANTLY REFUSES STATING THAT HE CANNOT SLEEP WITH A MACHINE ON HIS FACE. PT EXPLAINED PURPOSE AND NECESSITY OF BIPAP AND THAT IS ORDERED BY THE PHYSICIAN. HE STATES, "I HAVE ONE OF THOSE COLLECTING DUST IN MY CLOSET, I'M NOT USING IT." CURRENTLY 96% ON 2L OF OXYGEN VIA NC. WILL CONTINUE TO MONITOR RESPIRATORY STATUS.
--- NOTE | 2018-11-01 03:51 | NUR ---
PT VOIDED 500 CC/ URINE SAMPLE TO LAB
--- NOTE | 2018-11-01 03:55 | NUR ---
ASSESSMENT COMPLETE. LUNGS ARE CLEAR AND DIMINISHED. ABDOMEN DISTENDED AND SOFT. 3+ EDEMA TO BLE. SCATTERED SMALL SCABS ON SKIN AND DIRT; PT APPEARS UNKEPT. PT STATES THAT A HX OF AN ABCESS TO RIGHT WRIST WAS REPORTED TO POSSIBLY HAVE MRSA; NASAL SWAB COLLECTED AND PT PLACED ON CONTACT PRECAUTIONS. DURING ASSESSMENT PT WAS MOST CONCERNED ABOUT FINDING HIS CELL PHONE WHICH HE STATES WAS PRIORITY. CELL PHONE NOW AT BEDSIDE AND INCLUDED ON INVENTORY SHEET ALONG WITH OTHER BELONGINGS AND CANE.
--- NOTE | 2018-11-01 04:10 | NUR ---
OXYGEN TITRATED TO 3L FOR O2 SAT OF 81% WHILE ASLEEP; WILL REASSESS. PT VOIDED 725ML OF CLEAR YELLOW URINE IN URINAL.
--- NOTE | 2018-11-01 04:23 | NUR ---
OXYGEN NOW AT 4L; PT CURRENTLY 92%. C/O BEING HOT; BLANKET REMOVED; TEMPERATURE 98.9. PT SEEMS ANXIOUS WHEN AWAKE; BLOOD PRESSURE UNSTEADY, BUT STABLE.
--- NOTE | 2018-11-01 04:45 | NUR ---
OXYGEN SATURATION CURRENLTY 100%, BUT DROPS INTO THE 70'S DURING SLEEP APNEA; NASAL CANNULA POSITIONED AT MOUTH DUE TO MOUTH BREATHING. PT RESTING IN BED ON LEFT SIDE. NO NEEDS AT THIS TIME.
--- NOTE | 2018-11-01 05:47 | NUR ---
PT RESTLESS IN BED; MOVES AROUND FREQUENTLY AND OCCASIONALLY MAKES LOUD GRUNTING NOISES. OXYGEN SATURATIONS REMAIN IN THE 90'S.
--- NOTE | 2018-11-01 06:10 | NUR ---
PT C/O BEING VERY HOT; ROOM COOL THERMOSTAT WILL ALLOW. ICE PACKS OFFERED TO PT AND HE DECLINED STATING, "WHAT ARE THOSE SUPPOSE TO DO FOR ME? I NEED A COOLER ROOM!"
--- NOTE | 2018-11-01 07:21 | NUR ---
Pt markering out about pain he needs pain medicene he has been laying here all night and no one has done anything about it, I'll just walk down to my van and get my pain meds in my van. This is inhumane, fan provided for pt also markering about about being hot in the room. (thermostat is already set at lowest temp in room). Justino keywarehouse guard at bedside
--- NOTE | 2018-11-01 07:25 | NUR ---
Pt now calling E COMMERCE ANALYST requesting light sheet because he is cold.
--- NOTE | 2018-11-01 07:40 | NUR ---
AM assessment completed, see interventions, pt refuses to wear bipap and educated regarding o2 sats dropping during sleep to the 60's pt just looks at nurse and states "and", comfort measures provided bp stable O2 sats flucuate greatly from 60-92% best when awake, educated regarding safety measures reinforced, will continue to monitor.
--- NOTE | 2018-11-01 08:06 | NUR ---
Pt resting in bed, no complaints, offered, call forman within reach.
--- NOTE | 2018-11-01 08:28 | NUR ---
2ND NURSE IN ROOM, AFTER PT USED CALLBELL. PT C/O "NOT BEING ABLE TO GET AIR." FAN ON IN ROOM. NC ON. PT REFUSING BIPAP/CPAP. PT ENCOURAGED TO SIT UP HIGHER IN BED. PT ABLE TO REPOSITION SELF.
--- NOTE | 2018-11-01 08:30 | NUR ---
PT CALLED STATING HE FEELS LIKE HE IS SMOTHERING AND WHAT CAN WE DO ABOUT IT, OFFERED BIPAP PT REFUSES STATING WHY Y'ALL KEEP TRYING TO PUT THAT DAMN MACHINE ON ME, PT WEARING NC ORDERED, ENCOURAGED TO REPOSITION IN BED AND RAISED HOB FOR COMFORT, PT STATES SOME RELIEF, WILL CONTINUE TO MONITOR.
--- NOTE | 2018-11-01 09:15 | NUR ---
PT RESTING IN BED, DOZES INTERMITTENLY, APNIC PERIODS NOTED AND O2 SATS DROP WHEN SLEEPING, CONTINUES TO HAVE LABORED REPSIRATIONS, PT CONTINUES TO REFUSE BI PAP, WILL CONTINUE TO MONITOR.
--- NOTE | 2018-11-01 10:00 | NUR ---
PT CALLING ASKING STAFF TO GO OUTSIDE AND INTO HIS PERSONAL VEHICLE TO GET A [employer] CARD SO HE CAN CALL HIS FIANCE, EXPLAINED TO PATIETNT THAT WE CANNOT GO INTO HIS PERSONAL VEHCILE FOR HIM, AND THAT WE CANNOT ALLOW HIM TO LEAVE THE UNIT/FLOOR TO GET IT HIMSELF RELATED TO HIS CURRENT RESPIRATORY STATUS AND LOW O2 SATS WELL CONTINUED COMPLAINTS OF SOB AND LABORED BREATHING, CALL ELKINS WITHIN REACH, WILL CONTINUE TO MONITOR.
--- NOTE | 2018-11-01 10:48 | NUR ---
PT RESTING IN BED, RESPS REMAIN LABORED AND CONTINUES TO REFUSE BI PAP. SAT 94% ON NC AT THIS TIME, WILL CONTINUE TO MONITOR.
--- NOTE | 2018-11-01 12:15 | NUR ---
PT TAKES PO MEDICATION W/O INCIDENT, MEDICATED FOR COMPLAINTS OF HIP PAIN, URINALS AT BEDSIDE, WILL CONTINUE TO MONITOR.
--- NOTE | 2018-11-01 13:22 | NUR ---
PT DOZING, WATCHING TELEVISION, WILL CONTINUE TO MONITOR.
--- NOTE | 2018-11-01 13:23 | NUR ---
PT RESTING IN BED, CONTINUES TO DOZE INTERMITTENLY, CALL ELKINS WITHIN REACH, WILL CONTINUE TO MONITOR.
--- NOTE | 2018-11-01 14:16 | NUR ---
PT OFF UNIT FOR CATSCAN WITH STAFF.
--- NOTE | 2018-11-01 14:26 | NUR ---
PT RETURNED TO ICU 1.
--- NOTE | 2018-11-01 14:29 | NUR ---
PT TOLERATED CT SCAN W/O INCIDENT, BACK INTO BED, COMFORT MEASURES PROVIDED, HOB REMAINS ELEVATED WILL CONTINUE TO MONITOR
--- NOTE | 2018-11-01 16:40 | NUR ---
pt dozes frequently o2 david flucuate greatly from 60-95 on NC, pt continues to refuse Bi-PAP, will continue to monitor.
--- NOTE | 2018-11-01 17:34 | NUR ---
insulin coverqge provided for accu check, pt toelrated without incident, call forman within reach and PMmeal set up assist provided, Will continue to monitor.
--- NOTE | 2018-11-01 18:19 | NUR ---
pt continues sleeping, pm meal left at bedside at this time as pt continues sleeping, will continue to monitor. Call forman within reach.
--- NOTE | 2018-11-01 19:16 | NUR ---
BEDSIDE REPORT RECEIVED FROM RICH GREY. PT SITTING UP IN BED TALKING ON CELL PHONE; ALERT AND ORIENTED. RESPIRATIONS EVEN AND UNLABORED ON OXYGEN; 93% OXYGEN SATURATION. C/O PAIN TO KNEES AND ANKLES AND REQUESTS LORTAB. NO OTHER REQUESTS AT THIS TIME. PLAN OF CARE REVIEWED. PT ENCOURAGED TO VERBLIZE CONCERNS. STATES UNDERSTANDING. SAFETY MEASURES IN PLACE. CALL LIGHT WITHIN REACH.
--- NOTE | 2018-11-01 21:06 | NUR ---
PT REQUESTING THAT SECURITY GET HIS PHONE CLASP MACHINE OPERATOR OUT OF HIS PERSONAL VEHICLE. CONCERNED THAT HE WILL MISS A PHONE CALL FROM HIS GIRLFRIEND. PT ALSO STATES THAT HE HAS TO LEAVE BY [phone] IN THE MORNING IN ORDER TO CHARGE HIS PHONE AND RECEIVE THE CALL. PT MADE AWARE THAT DOCTOR MAY NOT BE IN BY THAT TIME.
--- NOTE | 2018-11-01 21:43 | NUR ---
PT DEMANDING AN ASA FOR HEADACHE AND MEDICATION FOR HEARTBURN; LORTAB GIVEN WITH HIS MEDICATIONS FOR BILATERAL KNEE AND ANKLE ACHES, BUT PT REPORTS THAT THE LORTAB IS NOT EFFECTIVE FOR HIS HEADAHCES. NEW ORDERS RECEIVED FROM DR. LEONARD FOR ONE TIME DOSE OF ASA AND MAALOX.
--- NOTE | 2018-11-01 23:40 | NUR ---
PT REQUESTING FAN BE TURNED BACK ON BECAUSE HE IS GETTING HOT. TEMPERATURE NOW 99.0. STATES THAT HEADACHE AND HEARTBURN ARE RESOLVED, BUT HIS PAIN TO HIS HIP IS RETURNING AND REQUESTS ANOTHER LORTAB. INFORMED WHEN NEXT LORTAB DOSE IS DUE. PT REPOSITIONING SELF IN BED.
[2018-11-02 01:00] VITALS: BP 127/62
--- NOTE | 2018-11-02 02:03 | NUR ---
PT CALLED NURSE INTO ROOM TO ASK ABOUT HIS "HEART PILL." UNABLE TO NAME WHICH MEDICATION HE IS SPEAKING OF. WHEN NURSE RETURNED TO ROOM AFTER CHECKING EMAR, PT WAS ASLEEP. CURRENTLY 83% OXYGEN SATURATION ON 4L OF O2 VIA NC.
[2018-11-02 03:00] VITALS: BP 142/64
--- NOTE | 2018-11-02 04:14 | NUR ---
PT ASLEEP AT THIS TIME WITH NO SIGNS OF DISTRESS. RESPIRATIONS EVEN AND UNLABORED ON 4L OF OXYGEN. SINUS RHYTHM TO SINUS DEVI ON TELEMETRY; HR HAS DECREASED TEMPORARILY INTO THE 40'S AT TIMES. OXYGEN SATURATIONS DROP DURING PERIODS OF APNEA. PT CONTINUES TO REFUSE BIPAP.
[2018-11-02 05:00] VITALS: BP 148/62
--- NOTE | 2018-11-02 05:13 | NUR ---
PT REQUESTING A BREATHING TREATMENT; REPORTS THAT HE FEELS SOB. PT DOES NOT APPEAR TO HAVE SOB; RESPIRATIONS EVEN AND UNLABORED. 96% ON 4L. WILL CONTINUE TO MONITOR RESPOIRATORY STATUS.
[2018-11-02 05:25] LABS: HEMATOCRIT 35.3 % (39.0-50.0); HEMOGLOBIN 11.5 g/dl (14.0-18.0); IMMATURE GRANULOCYTES 0.5 % (0.0-5.0); MEAN CELL VOLUME 92.7 fL CALC (80.0-100.0); MEAN CORPUSCULAR HGB 30.2 pG CALC (26.0-32.0); MEAN CORPUSCULAR HGB CONC 32.6 g/L CALC (32.0-36.0); NEUT# 4.05 thou/uL (1.82-7.42); RED BLOOD COUNT 3.81 mill/uL (4.70-6.10); RED CELL DISTRI WIDTH 12.8 % (11.5-15.5)
[2018-11-02 05:36] LABS: ALBUMIN 3.1 g/dL (3.2-5.0); ALKALINE PHOSPHATASE 99 u/l (38-126); AMYLASE 68 u/l (30-110); ANION GAP 12 (6-22 (CALC)); BILIRUBIN, TOTAL 0.9 mg/dL (0.0-1.4); BUN 13 mg/dL (9-20); BUN/CREATININE RATIO 17 (12-20 (CALC)); CARBON DIOXIDE 35 mmol/l (22-30); CHLORIDE 95 mmol/l (95-108); CREATININE 0.8 mg/dL (0.7-1.3); GFR > 60 ML/MIN (>=60 (CALC)); GFR FOR AFR.AMER. > 60 ML/MIN (>=60 (CALC)); LIPASE 658 u/l (23-300); MAGNESIUM 1.5 mg/dL (1.6-2.3); POTASSIUM 3.7 mmol/l (3.5-5.1); SGOT/AST 25 u/l (17-59); SODIUM 138 mmol/l (137-146); TOTAL PROTEIN 6.5 g/dL (6.3-8.2)
--- NOTE | 2018-11-02 06:22 | NUR ---
PT REPORTS THAT HE IS HOT AND THINKS THAT HE HAS A TEMPERATURE; AFEBILE 98.2. FAN TURNED ON HIM. PT CONTINUES ON CONTACT PRECAUTIONS FOR HX OF MRSA AND 1000ML FLUIDS RESTRICTION.
--- NOTE | 2018-11-02 06:39 | NUR ---
BED SCALE WEIGHT OBTAINED WITH GREATER THAN 3 LB WEIGHT LOSS; SEE WEIGHT INTERVENTION.
--- NOTE | 2018-11-02 07:25 | NUR ---
Pt resting in bed, alert and oriented, AM assessment completed, see interventions, pt contiunues to refuse to wear bipap and re-educated regarding O2 sats continuet dropping during sleep to the 60's sometimes lower, with no distress noted, pt nods head, but still refuses bi pap, comfort measures provided bp stable O2 sats flucuate greatly from 60-92% best when awake, educated regarding safety measures reinforced, will continue to monitor.
--- NOTE | 2018-11-02 07:35 | NUR ---
insulin coverage to be given for BS this am, am meal at bedside, will continue to monitor.
[2018-11-02 08:00] VITALS: BP 121/63
--- NOTE | 2018-11-02 09:07 | NUR ---
PT REPOSITIONS SELF IN BED FOR COMFORT, CALL ELKINS WITHIN REACH, OFFERS NO NEW COMPLAINTS, WILL CONTINUE TO MONITOR.
[2018-11-02 10:00] VITALS: BP 116/73
--- NOTE | 2018-11-02 10:10 | NUR ---
PT RESTING INBED, CONTINUES TO HAVE PERIODS OF DEVI CARDIA AND HYOXIA PT AWOKEN AND ENCOURAGED TO TAKE DEEP BREATHS , COOPERATIVE AT TIMES, WILL CONTINUE TO MONITOR CONTINUES TO REFUSE BI PAP. CALL ELKINS WITHIN REACH.
--- NOTE | 2018-11-02 10:40 | NUR ---
MARJ AVILA AT BEDSIDE, NAHUN ELKINS WITHIN REACH.
--- NOTE | 2018-11-02 11:17 | NUR ---
M EDICATED [facility] ORDERED AND LORTAB FOR COMPLAINTS OF HIP PAIN AND HEADACHE, WILL CONTINUE TO MONITOR.
--- NOTE | 2018-11-02 11:20 | NUR ---
IN TO SEE PATIENT, PLAN OF CARE DISCUSSED AND PT VERBALIZES DESIRE/NEED TO BE DISCHARGED TODAY, WILL CONTINUE TO MONITOR.
[2018-11-02 12:00] VITALS: BP 113/65
--- NOTE | 2018-11-02 13:03 | NUR ---
PT REQUESTED CORDLESS PHONE AND PROVIDED REQUESTED, WILL CONTINUE TO MONITOR.
--- NOTE | 2018-11-02 13:26 | NUR ---
PT REQUESTING ALL MONITORING EQUIPMENT AND IV ACCESS BE REMOVED PT IS INSISTING ON LEAVING AMA, "I APPRECIATE EVERYTHING Y'ALL HAVE DONE FOR ME BUT I CAN'T STAY", IV SITE REMOVED INTACT, ALL MONITORING EQUIPMENT OFF AT THIS TIME. PT EDUCTAED PREVIOSULY REGARDING THE IMPORTANCE OF STAYING AND CONTINUING CARE, PT VERBALIZES UNDERSTANDING BUT STATES HE WILL BE FINE.
--- NOTE | 2018-11-02 13:40 | NUR ---
Patient decides to leave AMA. Multiple attempts made to ecourage patient to remain here for continued treatment. Explained to patient all risks of leaving against medical advice including . Pt verbalized understanding of all risks. Pt also encouraged to return to [facility] at any time, especially if symptoms continue or become worse. Pt verbalized understanding. TAKEN TO PERSONAL VEHICLE VIA WHEELCHAIR, ALL BELONGINGS WITH PATIENT.
== END 2018-11-02 13:40 | disposition left against medical advice (07) | DRG 291 ==
LOC: ED 23:54 → ED-I 11-01 02:30 → ICU 11-01 03:06 → ED 11-01 03:06 → ICU 11-02 13:40
PROVIDERS: Emergency Medicine; ADMIT Internal Medicine Nephrology; ATTEND Internal Medicine Nephrology
DX: I11.0 Hypertensive heart disease with heart failure (principal); I50.21 Acute systolic (congestive) heart failure; J45.901 Unspecified asthma with (acute) exacerbation; J44.1 Chronic obstructive pulmonary disease with (acute) exacerbation; Z68.42 Body mass index [BMI] 45.0-49.9, adult; E11.9 Type 2 diabetes mellitus without complications; I34.1 Nonrheumatic mitral (valve) prolapse; G47.33 Obstructive sleep apnea (adult) (pediatric); K21.9 Gastro-esophageal reflux disease without esophagitis; G89.29 Other chronic pain; E66.01 Morbid (severe) obesity due to excess calories; Z53.20 Procedure and treatment not carried out because of patient's decision for unspecified reasons; Z96.643 Presence of artificial hip joint, bilateral
CPT/HCPCS: J1650

== ENCOUNTER 2019-02-28 14:23 | Inpatient (IN) | payer OTHER ==
[2019-02-28] VITALS (11 sets, daily range): BP systolic 96–124; BP diastolic 52–67
[~2019-02-28] VITALS: Ht 172.7 cm; Wt 139.9 kg
--- NOTE | 2019-02-28 14:23 | NUR ---
PATIENT DIRECTLY TO ROOM 13 FOR EXAM WITH MD AT BEDSIDE. PATIENT STATES NEEDING TO USE RESTROOM BEDSIDE COMMODE BROUGHT TO BEDSIDE
[2019-02-28 14:55] LABS: IMMATURE GRANULOCYTES 0.4 % (0.0-5.0); MEAN CELL VOLUME 89.5 fL CALC (80.0-100.0); MEAN CORPUSCULAR HGB 29.9 pG CALC (26.0-32.0); MEAN CORPUSCULAR HGB CONC 33.5 g/L CALC (32.0-36.0); NEUT# 11.14 thou/uL (1.82-7.42); RED BLOOD COUNT 5.71 mill/uL (4.70-6.10)
[2019-02-28 14:58] LABS: HEMATOCRIT 51.1 % (39.0-50.0); HEMOGLOBIN 17.1 g/dl (14.0-18.0)
--- NOTE | 2019-02-28 15:00 | NUR ---
PT STATES ABDOMINAL PAIN WITH N/V/D THAT STARTED YERSTERDAY. DENIES ANY C/P,S SOB, STATES THAT HE FEELS WEAK. PT IS AOX4.
[2019-02-28 15:04] LABS: ALKALINE PHOSPHATASE 118 u/l (38-126); BILIRUBIN, TOTAL 1.2 mg/dL (0.0-1.4); BUN 15 mg/dL (9-20); BUN/CREATININE RATIO 14 (12-20 (CALC)); CHLORIDE 100 mmol/l (95-108); ETHYL ALCOHOL 0 mg/dl (0-30); GFR > 60 ML/MIN (>=60 (CALC)); GFR FOR AFR.AMER. > 60 ML/MIN (>=60 (CALC)); LIPASE 297 u/l (23-300); POTASSIUM 4.2 mmol/l (3.5-5.1); SGOT/AST 31 u/l (17-59); SODIUM 138 mmol/l (137-146)
[2019-02-28 15:16] LABS: ALBUMIN 4.1 g/dL (3.2-5.0); ANION GAP 18 (6-22 (CALC)); CARBON DIOXIDE 24 mmol/l (22-30); TOTAL PROTEIN 7.9 g/dL (6.3-8.2)
--- NOTE | 2019-02-28 15:24 | NUR ---
PT ASLEEP ON STRETCHER- SNORING IN SEMIFOWLERS POSITION. VITALS BEING MONITORED
[2019-02-28] MEDS ORDERED: JANUVIA100 MG PO (15:58)
[2019-02-28] MEDS ORDERED: PROAIR HFA108 MCG/AC (15:59)
[2019-02-28] MEDS ORDERED: GLIPIZIDE5 MG PO (15:59)
--- NOTE | 2019-02-28 16:00 | NUR ---
B/P DECREASED. MD AT BEDSIDE, PHENYLEPRINE PUSHES GIVEN TO MAINTAIN BP.
--- NOTE | 2019-02-28 17:00 | NUR ---
PT MORE ALERT AFTER NARCAN AND LEVO DRIP
--- NOTE | 2019-02-28 17:23 | NUR ---
PT RESTING ON STRETCHER, BP MAINTAINING WITH MEDICATIONS. NO COMPLAINTS AT THIS TIME.
--- NOTE | 2019-02-28 17:54 | NUR ---
PT AWAKE AND CHATTY, RESTING ON STRETCHER, NO COMPLAINTS STATED AT THIS TIME.
--- NOTE | 2019-02-28 18:44 | NUR ---
PT RESTING ON STRETHCER, NO COMPLAINTS STATED AT THIS TIME.
--- NOTE | 2019-02-28 19:28 | NUR ---
REPORT CALLED TO ICU- ILYA VILLANUEVA ACCEPTED PT
--- NOTE | 2019-02-28 20:11 | NUR ---
53 yr old white male adm icu8 per stretcher from er. pt texting @ present. cell phone removed from pt. transferred self to bed. denies distress. no n/v or diarrhea @ present. classroom monitor shows sinus rhythm. rij tlc in place. ns began as ordered. levo infusing @ 12 mcg/min. history obtained per pt & er record. oriented to room. mrsa swab collected & sent to lab. fall & contact precautions initiated. cell phone given back to pt.
[2019-02-28 20:15] LABS: URINE BLOOD DIPSTICK NEGATIVE (NEGATIVE); URINE COLOR YELLOW; URINE GLUCOSE - DIPSTICK 100 mg/dL (NEGATIVE); URINE KETONE TRACE mg/dL (NEGATIVE); URINE LEUK ESTERASE NEGATIVE (NEGATIVE); URINE NITRITE - DIPSTICK NEGATIVE (Negative); URINE PROTEIN - DIPSTICK TRACE mg/dL (NEG-TRACE); URINE UROBILINOGEN - DIPSTICK 0.2 E.U./dL (0.2)
--- NOTE | 2019-02-28 20:15 | NUR ---
Admission Note Report Given to: ILYA VILLANUEVA Transported by: Wheelchair X Stretcher Transported with: X Nurse Transporter X Patent IV O2 X Head Doffer TRANSPORTED TO ICU 8 WITHOUT INCIDENT
[2019-02-28 20:30] LABS: URINE BILIRUBIN - DIPSTICK SMALL (NEGATIVE)
[2019-02-28 20:31] LABS: BARBITURATES NEGATIVE (NEGATIVE); COCAINE NEGATIVE (NEGATIVE); METHADONE NEGATIVE (NEGATIVE); OXCYCODONE POSITIVE (NEGATIVE); TETRAHYDROCANNABIONOL NEGATIVE (NEGATIVE); TRICYLIC ANTIDEPRESSANTS NEGATIVE (NEGATIVE)
--- NOTE | 2019-02-28 22:00 | NUR ---
taking selfies. no n/v or diarrhea. snack given per request.
--- NOTE | 2019-02-28 23:00 | NUR ---
watching tv & talking on cell phone. no distress.
[2019-03-01] VITALS (16 sets, daily range): BP systolic 104–132; BP diastolic 51–72
--- NOTE | 2019-03-01 00:01 | NUR ---
awake. no n/v or diarrhea. radiographer cardiac catheterization shows sinus rhythm pvcs.
--- NOTE | 2019-03-01 02:00 | NUR ---
resting quietly. no distress. pt appears to have periods of sleep apnea. hob remains elevated.
--- NOTE | 2019-03-01 04:00 | NUR ---
eyes closed. no distress. security monitor shows sinus rhythm pvcs.
--- NOTE | 2019-03-01 04:45 | NUR ---
blood drawn & sent to lab.
[2019-03-01 05:19] LABS: MEAN CORPUSCULAR HGB 30.6 pG CALC (26.0-32.0); MEAN CORPUSCULAR HGB CONC 33.9 g/L CALC (32.0-36.0); RED BLOOD COUNT 4.32 mill/uL (4.70-6.10)
[2019-03-01 05:28] LABS: HEMATOCRIT 38.9 % (39.0-50.0); HEMOGLOBIN 13.2 g/dl (14.0-18.0)
[2019-03-01 05:44] LABS: ANION GAP 10 (6-22 (CALC)); BUN 10 mg/dL (9-20); BUN/CREATININE RATIO 13 (12-20 (CALC)); CARBON DIOXIDE 27 mmol/l (22-30); CHLORIDE 102 mmol/l (95-108); CREATININE 0.8 mg/dL (0.7-1.3); GFR > 60 ML/MIN (>=60 (CALC)); GFR FOR AFR.AMER. > 60 ML/MIN (>=60 (CALC)); POTASSIUM 3.5 mmol/l (3.5-5.1); SODIUM 136 mmol/l (137-146)
--- NOTE | 2019-03-01 07:00 | NUR ---
PT RESTING IN BED WITH EYES CLOSED. PT AROUSES TO VERBAL STIMULI. PT IS ALERT AND ORIENTED X3. PT FALLS ASLEEP WHILE ANSWERING QUESTIONS. SHIFT ASSESSMNET COMPLETED AT THIS TIME.IV PATENT X2. CALL LIGHT IN REACH. WILL CONTINUE TO MONITOR.
--- NOTE | 2019-03-01 07:46 | NUR ---
AM MEAL AT BEDSIDE. PT REQUESTED TO HAVE MEAL LEFT ON BEDSIDE TABLE UNTIL HE IS READY TO FULLY WAKE UP.
--- NOTE | 2019-03-01 09:28 | NUR ---
PT RESTING IN BED WITH EYES CLOSED. RESP ARE EVEN AND UNLABORED. NO DISTRESS NOTED. CALL LIGHT IN REACH. WILL CONTINUE TO MONITOR
--- NOTE | 2019-03-01 10:30 | NUR ---
DR LEONARD AT BEDSIDE
--- NOTE | 2019-03-01 10:37 | NUR ---
PHONED MEDSURG AWAITING BED ASSIGNMENT
--- NOTE | 2019-03-01 11:20 | NUR ---
OFFERRED PT A CPAP DUE TO SNORING AND O2 SATS DROPPING IN THE 60S TO 70S DURING APNEA EPISODES. PT REFUSED AND STATED DONOT BRING IT UP AGAIN THAT HE WOULD MIMI AND HAS SUED NURSES IN THE PAST DUE TO [facility] ISSUES. I REPLIED I DID NOT STATED ANYTHING ABOUT THE [facility] ONLY OFFERRED A CPAP FOR HIS SAFETY WITH OXYGEN THAT WAS DISCUSSED WHEN DR LEONARD WAS IN ROOM. PT DECLINED AGAIN.
--- NOTE | 2019-03-01 14:00 | NUR ---
PT RESTING IN BED WITH EYES CLOSED. RESP ARE EVEN AND UNLABORED. CALL LIGHT IN REACH. WILL CONTINUE TO MONITOR.
--- NOTE | 2019-03-01 15:50 | NUR ---
PT ASSISTED TO BSC FOR BM. PT REQUESTED TO SIT AWHILE AND CLEAN SELF UP AFTERWARD. BM IN BED. LINENS CHANGED. BASIN AND CLOTHS PROVIDED SO PATIENT COULD PERFORM SELF HYGIENE. CALL LIGHT IN REACH. WILL CONTINUE TO MONITOR.
--- NOTE | 2019-03-01 16:25 | NUR ---
PT ASSISTED BACK TO BED. LARGE LIQUID BM. PT A MAXIUMUM ASSIST. CALL LIGHT IN REACH. WILL CONTINUE TO MONITOR.
--- NOTE | 2019-03-01 17:43 | NUR ---
PT SET UP FOR PM MEAL
--- NOTE | 2019-03-01 18:29 | NUR ---
PT RESTIN IN BED WATCHING TV. RESP ARE EVEN AND UNLABORED. NO DISTRESS OTED. CALL LIGHT IN REACH. WILL CONTINUE TO MONITOR
--- NOTE | 2019-03-01 19:00 | NUR ---
BEDSIDE REPORT RECEIVED FROM RICH ARCINIEGA.
--- NOTE | 2019-03-01 19:20 | NUR ---
PT REPORTS NEW ONSET CHEST PAIN. POINTS TO LEFT UPPER CHEST, RIGHT UPPER CHEST, AND LEFT LOWER CHEST. STATES THAT HE WOKE UP FROM SLEEPING AND IT WAS HURTING 04/17, HE DOES NOT KNOW WHEN IT STARTED. EKG DONE NOW AND OXYGEN APPLIED 2L NC.
--- NOTE | 2019-03-01 19:24 | NUR ---
THIS RN CALLED TO PATIENT ROOM AFTER BEING SLACKLINE OPERATOR LIGHT. PT. STATES HE HAS PAIN ACROSS HIS UPPER CHEST AND LT. SIDE OF THE CHEST. ORDER PLACED FOR EKG AND RT NOTIFIED.
--- NOTE | 2019-03-01 19:30 | NUR ---
PT STATES THAT THE CHEST PAIN HAS "EASED OFF" AND DESCRIBES IT "A DULL 2." TALKING ON CELL PHONE WITH MOTHER. DR. KENNEDY NOTIFIED OF EKG RESULTS AND PT CONDITION.
--- NOTE | 2019-03-01 19:53 | NUR ---
ASSESSMENT COMPLETE. PT SITTING UP ALERT AND ORIENTED; LAUGHING WITH NO CONCERNS SINCE CHEST PAIN IS RESOLVING. REMAINS SINUS RHYTHM ON TELE HEART RATE 75. ASSESSMENT NEGATIVE OTHER THAN PATCHY RED SCALEY SKIN ON ANKLES AND FEET WITH TRACE EDEMA. PT STATES THAT HE HAS PSORIASIS AND USUALLY HE APPLYS HYDROCORTISONE CREAM AND NEOSPORIN AND IT IS EFFECTIVE. PCP HAS DISCUSSED HIM SEEING A CUSTOM HARVESTER. PT ALSO REPORTS TENDERNESS IN BLE. TOLERATED DINNER WITH NO NAUSEA. ALSO REPORTS THAT TWICE THIS WEEK HE ATE AT [employer] AND BECAME "SICK A DOG." PLAN OF CARE REVIEWED. PT ENCOURAGED TO VERBALIZE CONCERNS. STATES UNDERSTANDING. SAFETY MEASURES IN PLACE. CALL LIGHT WITHIN REACH.
--- NOTE | 2019-03-01 20:39 | NUR ---
ACCU CHECK 149. HS MEDICATIONS ADMINISTERED. PT REQUESTING CRACKERS TO SNACK ON; PROVIDED WITH WATER. LEVQUIN INFUISING WITHOUT DIFFICULTY TO RIGHT IJ; DRESSING IS CDI.
--- NOTE | 2019-03-01 22:09 | NUR ---
FLAGYL INFUSING NOW. PT AWAKE AND TALKATIVE. DENIES ANY CHEST PAIN AT THIS TIME.
--- NOTE | 2019-03-01 23:54 | NUR ---
PT RESING ON LEFT SIDE PLAYING ON PHONE AND WATCHING TV. DENIES PAIN. RESPIRATIONS EVEN AND UNLABORED ON OXYGEN. AFEBRILE. PT HAS NO REQUESTS OR CONCERNS AT THIS TIME. SAFETY MEASURES IN PLACE. CALL LIGHT WITHIN REACH.
[2019-03-02] VITALS (10 sets, daily range): BP systolic 92–136; BP diastolic 47–72
--- NOTE | 2019-03-02 02:00 | NUR ---
PT ASLEEP AT THIS TIME WITH NO SIGNS OF DISTRESS.
--- NOTE | 2019-03-02 03:27 | NUR ---
PT WOKE TO VOID 900ML CLEAR LAURA URINE. FELL QUICKLY BACK SLEEP; DESATS INTO THE 70'S EVEN WITH OXYGEN IN PLACE VIA NC.
--- NOTE | 2019-03-02 04:31 | NUR ---
PT C/O RIGHT SIDED CHEST DISCOMFORT AND STATES, " THINK IT'S GAS." LORTAB GIVEN AND ASSISTED WITH REPOSITIONING. PT NOW ASLEEP; LORTAB HAD GOOD EFFECT. LABS DRAWN FROM RIGHT IJ AND FLUSHED PER PROTOCOL.
[2019-03-02 05:27] LABS: HEMATOCRIT 35.6 % (39.0-50.0); HEMOGLOBIN 11.8 g/dl (14.0-18.0); IMMATURE GRANULOCYTES 0.5 % (0.0-5.0); MEAN CELL VOLUME 91.5 fL CALC (80.0-100.0); MEAN CORPUSCULAR HGB 30.3 pG CALC (26.0-32.0); MEAN CORPUSCULAR HGB CONC 33.1 g/L CALC (32.0-36.0); NEUT# 3.54 thou/uL (1.82-7.42); RED BLOOD COUNT 3.89 mill/uL (4.70-6.10)
[2019-03-02 05:49] LABS: ALKALINE PHOSPHATASE 77 u/l (38-126); AMYLASE 37 u/l (30-110); ANION GAP 9 (6-22 (CALC)); BUN 5 mg/dL (9-20); BUN/CREATININE RATIO 8 (12-20 (CALC)); CARBON DIOXIDE 32 mmol/l (22-30); CHLORIDE 101 mmol/l (95-108); CREATININE 0.7 mg/dL (0.7-1.3); GFR > 60 ML/MIN (>=60 (CALC)); GFR FOR AFR.AMER. > 60 ML/MIN (>=60 (CALC)); LIPASE 127 u/l (23-300); MAGNESIUM 1.2 mg/dL (1.6-2.3); POTASSIUM 3.6 mmol/l (3.5-5.1); SODIUM 138 mmol/l (137-146)
[2019-03-02 05:54] LABS: ALBUMIN 2.7 g/dL (3.2-5.0); BILIRUBIN, TOTAL 0.5 mg/dL (0.0-1.4); SGOT/AST 55 u/l (17-59); TOTAL PROTEIN 5.7 g/dL (6.3-8.2)
--- NOTE | 2019-03-02 06:04 | NUR ---
PT WOKE UP AND REPORTED SOME CHEST DISCOMFORT TO RIGHT SIDE; ENCOURAGED TO REPOSITION AND MOVE AROUND IN BED. TROPONIN WAS NEGATIVE AND NO CHANGES IN CARDIAC RHYTHM. PT HAS SINCE BEEN BACK TO SLEEP WITH FURTHER COMPLAINTS.
--- NOTE | 2019-03-02 06:45 | NUR ---
RECIEVED REPORT FROM RICH ABARCA. ASSUMED PT CARE.
--- NOTE | 2019-03-02 08:54 | NUR ---
YARED AT BEDSIDE FOR ECHO.
--- NOTE | 2019-03-02 10:30 | NUR ---
DR. LEONARD AT BEDSIDE FOR ASSESSMENT AND TO DISCUSS PALN OF CARE. NEW ORDERS RECIEVED.
--- NOTE | 2019-03-02 11:45 | NUR ---
DIETARY ON UNIT, PT REPOSITIONED SELF. LUNCH TRAY SET UP.
--- NOTE | 2019-03-02 14:00 | NUR ---
PT RESTING IN BED, OFFERS NO COMPLAINTS AT THIS TIME. CALL LIGHT IN REACH.
--- NOTE | 2019-03-02 15:30 | NUR ---
REPORT GIVEN TO KALI CHENEY. PT TRANPORT TO MS BED 278 VIA .
--- NOTE | 2019-03-02 16:00 | NUR ---
PT RECEIVED FROM ICU VIA WC WITH STAFF. IV SITES ARE CDI. CONTINUE TO OBSERVE AND MONITOR.
--- NOTE | 2019-03-02 17:24 | NUR ---
PT REFUSES TO HAVE THE INSULIN INJECTION WANTS TO HAVE JANUVIA ONLY.
--- NOTE | 2019-03-02 20:26 | NUR ---
Patient resting in bed. No complaints of pain. V/S wnl. Breath sounds clear. Abdomen soft with active bowel sounds. No S&S of distress. Will continue to monitor patient progress.
[2019-03-03 00:23] VITALS: BP 124/66
--- NOTE | 2019-03-03 01:16 | NUR ---
Patient resting in bed. no complaints of pain. V/S wnl. No S&S of distress. Will continue to monitor patient progress.
[2019-03-03 04:12] VITALS: BP 129/73
--- NOTE | 2019-03-03 04:14 | NUR ---
Patient resting in bed. No S&S of distress. No complaints of pain. Labs drawn patient tolerated well. Will continue to monitor patient progress.
[2019-03-03 05:45] LABS: HEMATOCRIT 36.5 % (39.0-50.0); HEMOGLOBIN 12.1 g/dl (14.0-18.0); IMMATURE GRANULOCYTES 0.7 % (0.0-5.0); MEAN CELL VOLUME 91.3 fL CALC (80.0-100.0); MEAN CORPUSCULAR HGB 30.3 pG CALC (26.0-32.0); MEAN CORPUSCULAR HGB CONC 33.2 g/L CALC (32.0-36.0); NEUT# 3.48 thou/uL (1.82-7.42); RED CELL DISTRI WIDTH 13.7 % (11.5-15.5)
[2019-03-03 06:07] LABS: ALBUMIN 2.9 g/dL (3.2-5.0); ALKALINE PHOSPHATASE 86 u/l (38-126); AMYLASE 41 u/l (30-110); ANION GAP 10 (6-22 (CALC)); BILIRUBIN, TOTAL 0.3 mg/dL (0.0-1.4); BUN 5 mg/dL (9-20); BUN/CREATININE RATIO 6 (12-20 (CALC)); CARBON DIOXIDE 32 mmol/l (22-30); CHLORIDE 101 mmol/l (95-108); CREATININE 0.8 mg/dL (0.7-1.3); GFR > 60 ML/MIN (>=60 (CALC)); GFR FOR AFR.AMER. > 60 ML/MIN (>=60 (CALC)); LIPASE 160 u/l (23-300); MAGNESIUM 1.5 mg/dL (1.6-2.3); POTASSIUM 3.5 mmol/l (3.5-5.1); SGOT/AST 33 u/l (17-59); SODIUM 139 mmol/l (137-146)
[2019-03-03 07:00] VITALS: BP 128/59
--- NOTE | 2019-03-03 07:00 | NUR ---
PT A&OX3, ABLE TO MAKE NEEDS KNOWN. ASSESSMENT COMPLETED. PT DENIES CHEST PAIN OR ABDOMNEN DISCOMFORT AT THIS TIME. ACCUCHECK 119, NO S/S COVERAGE NEEDED AT THIS TIME. CALL LIGHT IN REACH. WILL MONITOR.
--- NOTE | 2019-03-03 10:00 | NUR ---
PT ASSISTED TO SHOWER, COMPLETE LINEN CHANGE DONE. PT TOLERATED WELL.
--- NOTE | 2019-03-03 11:40 | NUR ---
DIETARY ON UNIT, PT UP IN CHAIR EATING. OFFERS NO COMPLAINTS AT THIS TIME. CALL LIGHT IN REACH. WILL MONITOR.
--- NOTE | 2019-03-03 12:20 | NUR ---
DR. LEONARD AT BEDSIDE FOR ASSESMENT AND TO DISCUSS PALN OF CARE. NEW ORDERS RECIEVED.
--- NOTE | 2019-03-03 14:44 | NUR ---
IV site to LAC and RIJ/TL discontinued, cath intact. No edema , no redness, voices no discomfort.
--- NOTE | 2019-03-03 15:13 | NUR ---
Discharge instructions given. Patient verbalizes understanding of same. Discharged in stable condition via Wheelchair to Home with *Other. All belongings sent with pt.
== END 2019-03-03 15:10 | disposition home or self-care (01) | DRG 394 ==
LOC: ED 14:23 → ED-I 18:55 → ED 19:15 → ICU 19:16 → MS2 03-02 15:57
PROVIDERS: Family Medicine; Internal Medicine Nephrology; ADMIT Internal Medicine; ATTEND Internal Medicine
PROC: 02HV33Z Insertion of Infusion Device into Superior Vena Cava, Percutaneous Approach (ICD-10-PCS; principal; 2019-02-28)
DX: K52.1 Toxic gastroenteritis and colitis (principal); Z68.42 Body mass index [BMI] 45.0-49.9, adult; I50.20 Unspecified systolic (congestive) heart failure; I11.0 Hypertensive heart disease with heart failure; T38.3X5A Adverse effect of insulin and oral hypoglycemic [antidiabetic] drugs, initial encounter; I95.9 Hypotension, unspecified; G47.33 Obstructive sleep apnea (adult) (pediatric); E11.9 Type 2 diabetes mellitus without complications; J44.9 Chronic obstructive pulmonary disease, unspecified; K21.9 Gastro-esophageal reflux disease without esophagitis; I34.1 Nonrheumatic mitral (valve) prolapse; E66.01 Morbid (severe) obesity due to excess calories; G89.29 Other chronic pain; M54.9 Dorsalgia, unspecified; Z96.643 Presence of artificial hip joint, bilateral; Z79.84 Long term (current) use of oral hypoglycemic drugs; Z91.19 Patient's noncompliance with other medical treatment and regimen
CPT/HCPCS: G0328; J3475; Q9967

== ENCOUNTER 2019-09-10 | Inpatient (IN) | payer OTHER ==
[2019-09-07 16:46] LABS: HEMATOCRIT 34.4 % (39.0-50.0); IMMATURE GRANULOCYTES 0.7 % (0.0-5.0); MEAN CELL VOLUME 90.8 fL CALC (80.0-100.0); NEUT# 12.31 thou/uL (1.82-7.42); RED BLOOD COUNT 3.79 mill/uL (4.70-6.10); RED CELL DISTRI WIDTH 13.1 % (11.5-15.5)
[2019-09-07 17:00] LABS: ALKALINE PHOSPHATASE 123 u/l (38-126); BUN 8 mg/dL (9-20); BUN/CREATININE RATIO 10 (12-20 (CALC)); CARBON DIOXIDE 36 mmol/l (22-30); CHLORIDE 90 mmol/l (95-108); CREATININE 0.8 mg/dL (0.7-1.3); GFR > 60 ML/MIN (>=60 (CALC)); GFR FOR AFR.AMER. > 60 ML/MIN (>=60 (CALC)); POTASSIUM 4.1 mmol/l (3.5-5.1); SGOT/AST 20 u/l (17-59)
[2019-09-07 17:04] LABS: ANION GAP 8 (6-22 (CALC)); BILIRUBIN, TOTAL 0.5 mg/dL (0.0-1.4); SODIUM 130 mmol/l (137-146); TOTAL PROTEIN 9.3 g/dL (6.3-8.2)
[2019-09-07 22:40] VITALS: BP 91/61
[2019-09-08 04:05] VITALS: BP 123/80
[2019-09-08 05:53] LABS: HEMATOCRIT 34.3 % (39.0-50.0); HEMOGLOBIN 10.9 g/dl (14.0-18.0); IMMATURE GRANULOCYTES 0.8 % (0.0-5.0); MEAN CORPUSCULAR HGB 29.2 pG CALC (26.0-32.0); MEAN CORPUSCULAR HGB CONC 31.8 g/L CALC (32.0-36.0); NEUT# 10.76 thou/uL (1.82-7.42); RED BLOOD COUNT 3.73 mill/uL (4.70-6.10); RED CELL DISTRI WIDTH 13.1 % (11.5-15.5)
[2019-09-08 06:13] LABS: ANION GAP 12 (6-22 (CALC)); BUN 7 mg/dL (9-20); BUN/CREATININE RATIO 11 (12-20 (CALC)); CARBON DIOXIDE 30 mmol/l (22-30); CHLORIDE 94 mmol/l (95-108); CREATININE 0.6 mg/dL (0.7-1.3); GFR > 60 ML/MIN (>=60 (CALC)); GFR FOR AFR.AMER. > 60 ML/MIN (>=60 (CALC)); POTASSIUM 4.2 mmol/l (3.5-5.1); SODIUM 131 mmol/l (137-146)
[2019-09-08 08:10] VITALS: BP 139/75
[2019-09-08 18:27] VITALS: BP 128/72
[2019-09-09] VITALS (11 sets, daily range): BP systolic 93–136; BP diastolic 50–82
[2019-09-09 05:57] LABS: HEMATOCRIT 32.7 % (39.0-50.0); HEMOGLOBIN 10.3 g/dl (14.0-18.0); IMMATURE GRANULOCYTES 1.1 % (0.0-5.0); MEAN CELL VOLUME 92.1 fL CALC (80.0-100.0); MEAN CORPUSCULAR HGB CONC 31.5 g/L CALC (32.0-36.0); NEUT# 8.54 thou/uL (1.82-7.42); RED BLOOD COUNT 3.55 mill/uL (4.70-6.10); RED CELL DISTRI WIDTH 13.2 % (11.5-15.5)
[2019-09-09 06:14] LABS: ANION GAP 10 (6-22 (CALC)); BUN 10 mg/dL (9-20); BUN/CREATININE RATIO 14 (12-20 (CALC)); CARBON DIOXIDE 32 mmol/l (22-30); CHLORIDE 94 mmol/l (95-108); CREATININE 0.7 mg/dL (0.7-1.3); GFR > 60 ML/MIN (>=60 (CALC)); GFR FOR AFR.AMER. > 60 ML/MIN (>=60 (CALC)); POTASSIUM 4.2 mmol/l (3.5-5.1); SODIUM 132 mmol/l (137-146)
[2019-09-09 12:16] LABS: HEMATOCRIT 32.8 % (39.0-50.0); HEMOGLOBIN 10.4 g/dl (14.0-18.0); MEAN CELL VOLUME 92.7 fL CALC (80.0-100.0); MEAN CORPUSCULAR HGB 29.4 pG CALC (26.0-32.0); MEAN CORPUSCULAR HGB CONC 31.7 g/L CALC (32.0-36.0); NEUT# 10.3 thou/uL (1.82-7.42); RED BLOOD COUNT 3.54 mill/uL (4.70-6.10); RED CELL DISTRI WIDTH 13.2 % (11.5-15.5)
[~2019-09-10] MED LIST changes: +GLIPIZIDE5 MG PO; +PROAIR HFA108 MCG/AC
[2019-09-10 05:31] LABS: HEMATOCRIT 33.5 % (39.0-50.0); HEMOGLOBIN 10.1 g/dl (14.0-18.0); IMMATURE GRANULOCYTES 1.2 % (0.0-5.0); MEAN CELL VOLUME 95.7 fL CALC (80.0-100.0); MEAN CORPUSCULAR HGB 28.9 pG CALC (26.0-32.0); MEAN CORPUSCULAR HGB CONC 30.1 g/L CALC (32.0-36.0); NEUT# 6.78 thou/uL (1.82-7.42); RED BLOOD COUNT 3.5 mill/uL (4.70-6.10); RED CELL DISTRI WIDTH 13.6 % (11.5-15.5)
[2019-09-10 05:53] LABS: CREATININE 2.1 mg/dL (0.7-1.3); MAGNESIUM 1.7 mg/dL (1.6-2.3); POTASSIUM 5.1 mmol/l (3.5-5.1)
[2019-09-10 07:40] VITALS: BP 106/50
[2019-09-10 11:22] VITALS: BP 105/65
[2019-09-10 14:55] VITALS: BP 114/72
[2019-09-10 18:25] LABS: URINE BILIRUBIN - DIPSTICK NEGATIVE (NEGATIVE); URINE BLOOD DIPSTICK LARGE (NEGATIVE); URINE COLOR YELLOW; URINE GLUCOSE - DIPSTICK NEGATIVE (NEGATIVE); URINE KETONE NEGATIVE (NEGATIVE); URINE LEUK ESTERASE NEGATIVE (NEGATIVE); URINE PROTEIN - DIPSTICK NEGATIVE (NEG-TRACE); URINE SPECIFIC GRAVITY >=1.030; URINE UROBILINOGEN - DIPSTICK 0.2 E.U./dL (0.2)
[2019-09-10 18:35] VITALS: BP 114/76
[2019-09-10 18:35] LABS: URINE NITRITE - DIPSTICK NEGATIVE (Negative)
[2019-09-11 02:55] VITALS: BP 114/72
[2019-09-11 05:11] LABS: HEMATOCRIT 32.8 % (39.0-50.0); HEMOGLOBIN 9.8 g/dl (14.0-18.0); IMMATURE GRANULOCYTES 1.3 % (0.0-5.0); MEAN CELL VOLUME 96.8 fL CALC (80.0-100.0); MEAN CORPUSCULAR HGB 28.9 pG CALC (26.0-32.0); MEAN CORPUSCULAR HGB CONC 29.9 g/L CALC (32.0-36.0); NEUT# 7.55 thou/uL (1.82-7.42); RED BLOOD COUNT 3.39 mill/uL (4.70-6.10); RED CELL DISTRI WIDTH 13.7 % (11.5-15.5)
[2019-09-11 05:27] LABS: MAGNESIUM 1.8 mg/dL (1.6-2.3)
[2019-09-11 05:33] LABS: CREATININE 3.5 mg/dL (0.7-1.3); POTASSIUM 5.8 mmol/l (3.5-5.1)
[2019-09-11 07:25] VITALS: BP 129/67
[2019-09-11 14:47] VITALS: BP 130/89
[2019-09-11 19:55] VITALS: BP 133/66
[2019-09-11 20:15] LABS: POTASSIUM 4.5 mmol/l (3.5-5.1)
[2019-09-12 04:00] VITALS: BP 124/73
[2019-09-12 05:27] LABS: HEMATOCRIT 31.9 % (39.0-50.0); HEMOGLOBIN 9.8 g/dl (14.0-18.0); MEAN CELL VOLUME 94.4 fL CALC (80.0-100.0); MEAN CORPUSCULAR HGB CONC 30.7 g/L CALC (32.0-36.0); RED BLOOD COUNT 3.38 mill/uL (4.70-6.10); RED CELL DISTRI WIDTH 13.4 % (11.5-15.5)
[2019-09-12 05:43] LABS: CREATININE 4.2 mg/dL (0.7-1.3); POTASSIUM 4.3 mmol/l (3.5-5.1)
[2019-09-12 08:30] VITALS: BP 116/64
[2019-09-12 16:00] VITALS: BP 122/69
[2019-09-12 17:43] VITALS: BP 158/88
[2019-09-12 20:06] VITALS: BP 142/81
[2019-09-13 05:13] VITALS: BP 128/86
[2019-09-13 05:43] LABS: HEMATOCRIT 28.8 % (39.0-50.0); MEAN CELL VOLUME 93.8 fL CALC (80.0-100.0); MEAN CORPUSCULAR HGB 29.3 pG CALC (26.0-32.0); MEAN CORPUSCULAR HGB CONC 31.3 g/L CALC (32.0-36.0); RED BLOOD COUNT 3.07 mill/uL (4.70-6.10); RED CELL DISTRI WIDTH 13.4 % (11.5-15.5)
[2019-09-13 05:55] LABS: POTASSIUM 5.4 mmol/l (3.5-5.1)
[2019-09-13 08:33] VITALS: BP 136/82
[2019-09-13 12:15] VITALS: BP 142/77
[2019-09-13 14:48] LABS: HEMATOCRIT 32.4 % (39.0-50.0); MEAN CELL VOLUME 93.6 fL CALC (80.0-100.0); MEAN CORPUSCULAR HGB 28.9 pG CALC (26.0-32.0); MEAN CORPUSCULAR HGB CONC 30.9 g/L CALC (32.0-36.0); RED BLOOD COUNT 3.46 mill/uL (4.70-6.10); RED CELL DISTRI WIDTH 13.6 % (11.5-15.5)
[2019-09-13 15:08] LABS: ALBUMIN 2.4 g/dL (3.2-5.0); MAGNESIUM 1.8 mg/dL (1.6-2.3); POTASSIUM 4.5 mmol/l (3.5-5.1); TOTAL PROTEIN 8.1 g/dL (6.3-8.2)
[2019-09-13 15:11] LABS: BILIRUBIN, TOTAL 0.2 mg/dL (0.0-1.4)
[2019-09-13 18:38] VITALS: BP 151/56
[2019-09-13 20:00] VITALS: BP 106/62
[2020-02-11] MEDS ORDERED: AMLODIPINE BESY10 MG PO (12:15)
[2020-02-11] MEDS ORDERED: RANITIDINE150 M1 PO (12:16)
[2020-02-11] MEDS ORDERED: JANUVIA100 MG PO (12:16)
== END 2019-09-13 20:35 | disposition short-term general hospital (02) | DRG 853 ==
PROVIDERS: Internal Medicine; Nurse Practitioner Family; Obstetrics & Gynecology Gynecologic Oncology; Surgery; ADMIT Internal Medicine
PROC: 0J943ZZ Drainage of Right Neck Subcutaneous Tissue and Fascia, Percutaneous Approach (ICD-10-PCS; 2019-09-08)
PROC: 0K920ZZ Drainage of Right Neck Muscle, Open Approach (ICD-10-PCS; principal; 2019-09-09)
PROC: 06HY33Z Insertion of Infusion Device into Lower Vein, Percutaneous Approach (ICD-10-PCS; 2019-09-13)
PROC: 0BH17EZ Insertion of Endotracheal Airway into Trachea, Via Natural or Artificial Opening (ICD-10-PCS; 2019-09-13)
PROC: 5A1935Z Respiratory Ventilation, Less than 24 Consecutive Hours (ICD-10-PCS; 2019-09-13)
DX: A41.9 Sepsis, unspecified organism (principal); N17.0 Acute kidney failure with tubular necrosis; J96.22 Acute and chronic respiratory failure with hypercapnia; J96.21 Acute and chronic respiratory failure with hypoxia; M60.08 Infective myositis, other site; Z68.43 Body mass index [BMI] 50.0-59.9, adult; E87.1 Hypo-osmolality and hyponatremia; R65.20 Severe sepsis without septic shock; T36.8X5A Adverse effect of other systemic antibiotics, initial encounter; E87.5 Hyperkalemia; J44.9 Chronic obstructive pulmonary disease, unspecified; E11.69 Type 2 diabetes mellitus with other specified complication; I05.0 Rheumatic mitral stenosis; E11.65 Type 2 diabetes mellitus with hyperglycemia; E66.01 Morbid (severe) obesity due to excess calories; M19.90 Unspecified osteoarthritis, unspecified site; D64.9 Anemia, unspecified; G47.33 Obstructive sleep apnea (adult) (pediatric); B95.0 Streptococcus, group A, as the cause of diseases classified elsewhere; Z79.84 Long term (current) use of oral hypoglycemic drugs; Z88.0 Allergy status to penicillin
CPT/HCPCS: J0131; J0692; J3475; Q3014; Q9967

== ENCOUNTER 2021-05-29 02:33 | Emergency (ER) | payer OTHER ==
[~2021-05-29] VITALS: Ht 172.7 cm; Wt 145.0 kg
[~2021-05-29 02:33] MED LIST changes: +AMLODIPINE BESY10 MG PO; +FUROSEMIDE20 MG PO; +GERD MEDICATION PO; +IRON SUPPLEMENT PO; -PROAIR HFA108 MCG/AC; +PROAIR HFA108 MCG/AC IN
[2021-05-29 03:57] LABS: ALBUMIN 3.5 g/dL (3.2-5.0); ALKALINE PHOSPHATASE 93 u/l (38-126); BILIRUBIN, TOTAL 0.7 mg/dL (0.0-1.4); BUN 22 mg/dL (9-20); BUN/CREATININE RATIO 16 (12-20 (CALC)); CARBON DIOXIDE 29 mmol/l (22-30); CREATININE 1.4 mg/dL (0.7-1.3); GFR 52 ML/MIN (>=60 (CALC)); GFR FOR AFR.AMER. > 60 ML/MIN (>=60 (CALC)); LIPASE 520 u/l (23-300); SGOT/AST 25 u/l (17-59); SODIUM 131 mmol/l (137-146); TOTAL PROTEIN 7.1 g/dL (6.3-8.2)
[2021-05-29 04:15] LABS: IMMATURE GRANULOCYTES 0.8 % (0.0-5.0); MEAN CELL VOLUME 90.6 fL CALC (80.0-100.0); MEAN CORPUSCULAR HGB 30.5 pG CALC (26.0-32.0); MEAN CORPUSCULAR HGB CONC 33.7 g/dL CAL (32.0-36.0); NEUT# 5.38 thou/uL (1.82-7.42); RED BLOOD COUNT 4.13 mill/uL (4.70-6.10); RED CELL DISTRI WIDTH 12.3 % (11.5-15.5)
[2021-05-29 04:18] LABS: HEMATOCRIT 37.4 % (39.0-50.0); HEMOGLOBIN 12.6 g/dl (14.0-18.0)
[2021-05-29 04:21] LABS: PROTHROMBIN TIME 9.8 SECONDS (9.0-12.5)
[2021-05-29 04:22] LABS: ACT PARTIAL THROMBO TIME 19.5 SECONDS (20.0-32.5); INTERNATIONAL NORMALIZED RATIO 0.9 RATIO (0.7-1.3)
[2021-05-29 04:24] LABS: ANION GAP 11 (6-22 (CALC)); CHLORIDE 95 mmol/l (95-108); POTASSIUM 4.4 mmol/l (3.5-5.1)
[2021-05-29] MEDS ORDERED: TESSALON PERLE100 MG PO (05:09)
[2021-05-29] MEDS ORDERED: MEDDOSEPAK PO (05:09)
[2021-05-29 05:12] VITALS: BP 117/61
--- NOTE | 2021-05-31 13:09 | NUR ---
Spoke to pt on the phone. Pt states his symptoms are improving: no fever, chills, cough, or AMS. Pt states he has been feeling better after taking his medications as prescribed.
== END 2021-05-29 05:22 | disposition home or self-care (01) ==
LOC: ED 02:33
DX: J43.9 Emphysema, unspecified (principal); E11.9 Type 2 diabetes mellitus without complications; I48.91 Unspecified atrial fibrillation; E66.01 Morbid (severe) obesity due to excess calories; I25.2 Old myocardial infarction; Z79.84 Long term (current) use of oral hypoglycemic drugs; Z20.822 Contact with and (suspected) exposure to COVID-19

== ENCOUNTER 2021-07-22 13:52 | Observation (INO) | payer OTHER ==
[~2021-07-22] VITALS: Ht 172.7 cm; Wt 143.0 kg
[~2021-07-22 13:52] MED LIST changes: +TESSALON PERLE100 MG PO
--- NOTE | 2021-07-22 14:10 | NUR ---
PATIENT TO ROOM 12 VIA WHEELCHAIR
[2021-07-22 14:54] LABS: HEMATOCRIT 39.3 % (39.0-50.0); HEMOGLOBIN 12.9 g/dl (14.0-18.0); IMMATURE GRANULOCYTES 0.3 % (0.0-5.0); MEAN CELL VOLUME 94.2 fL CALC (80.0-100.0); MEAN CORPUSCULAR HGB 30.9 pG CALC (26.0-32.0); MEAN CORPUSCULAR HGB CONC 32.8 g/dL CAL (32.0-36.0); NEUT# 8.36 thou/uL (1.82-7.42); RED BLOOD COUNT 4.17 mill/uL (4.70-6.10)
[2021-07-22 15:05] LABS: ALBUMIN 4.2 g/dL (3.2-5.0); CREATININE 1.9 mg/dL (0.7-1.3); POTASSIUM 4.1 mmol/l (3.5-5.1)
[2021-07-22 15:06] LABS: TOTAL PROTEIN 9.1 g/dL (6.3-8.2)
--- NOTE | 2021-07-22 15:44 | NUR ---
Reassessment of patient completed. No distress noted.
--- NOTE | 2021-07-22 16:50 | NUR ---
PATIENT REEDUCATED TO PROVIDING URINE SAMPLE, PATIENT DENIES NEED TO GO. PATIENT HAS NOT HAD ANY DIARRHEA DURING ER VISIT AT THIS TIME.
--- NOTE | 2021-07-22 17:40 | NUR ---
Reassessment of patient completed. No distress noted. Patient resting eyes closed. Call light within reach.
[2021-07-22 18:27] LABS: URINE BILIRUBIN - DIPSTICK NEGATIVE (NEGATIVE); URINE BLOOD DIPSTICK SMALL (NEGATIVE); URINE COLOR YELLOW; URINE GLUCOSE - DIPSTICK NEGATIVE (NEGATIVE); URINE KETONE NEGATIVE (NEGATIVE); URINE LEUK ESTERASE NEGATIVE (NEGATIVE); URINE PH 5.5 (4.5-8.0); URINE PROTEIN - DIPSTICK TRACE mg/dL (NEG-TRACE); URINE UROBILINOGEN - DIPSTICK 0.2 E.U./dL (0.2)
[2021-07-22 18:31] LABS: URINE NITRITE - DIPSTICK NEGATIVE (Negative)
[2021-07-22 18:38] LABS: URINE SQUAMOUS EPITHELIAL CELL FEW EPI/hpf (0-FEW)
--- NOTE | 2021-07-22 18:59 | NUR ---
TRANSITION OF CARE REPORT TO NANO VILLANUEVA
--- NOTE | 2021-07-22 19:00 | NUR ---
RECEIVED REPORT. PT ASSISTED BACK TO BED AND STOOL SPECIMEN SENT.
[2021-07-22 19:32] LABS: C. DIFFICILE TOXIN A&B POSITIVE (NEGATIVE)
[2021-07-22] MEDS ORDERED: VANCOMYCIN HCL125 M1 PO (19:44)
[2021-07-22] MEDS ORDERED: LOMOTIL2.5 MG PO (19:44)
--- NOTE | 2021-07-22 20:06 | NUR ---
PT C/O PAIN AND CRAMPING RETURNING. MD NOTIFIED.
--- NOTE | 2021-07-22 20:21 | NUR ---
PT RECEIVED BENTYL IM PER ORDER. PT TOLERATED WELL. PT STABLE.
--- NOTE | 2021-07-22 20:25 | NUR ---
PAIN SLIGHTLY IMPROVED AFTER BENTYL GIVEN.
--- NOTE | 2021-07-22 21:24 | NUR ---
PT WANTING TO STAY BECAUSE HE FEELS VERY WEAK
--- NOTE | 2021-07-22 22:05 | NUR ---
REPORT RECEIVED FROM Che SAMPSON RN
--- NOTE | 2021-07-22 22:15 | NUR ---
PT TRANSFERRED TO 274 VIA STRETCHER.
--- NOTE | 2021-07-22 22:15 | NUR ---
PATIENT ARRIVED ON FLOOR ACCOMPANIED BY Che SAMPSON RN. PATIENT IS AOLER AND ORIETEDX3. NORMAL HEART SOUNDS AND CLEAR LUNG SOUNDS BILATERALLY. LAST BOWEL MOVEMENT TODAY 07/22, PT HAS TESTED POSITIVE FOR C DIFF AND IS ON CONTACT PRECAUTIONS. #20 IN LAC IFUSING NS PER EMAR. TRACE EDEMA NOTED ON BILATERAL LOWER EXTREMIEITIES. LEFT SIDE OF FACE HAS ONE SPIDER BITE, AND A CLOSED ICICION. PLAN OF CARE REVIEWED WITH PATIENT. ORIENTED TO CALL SYSTEM, CALL LIGHT AND BEDSIDE TABLEW WIHTIN REACH.
[2021-07-22 22:28] VITALS: BP 124/70
[2021-07-22 23:47] VITALS: BP 131/78
--- NOTE | 2021-07-23 00:25 | NUR ---
COMPLAINTS OF 8/10 PAIN, MEDICATION ADMINSITERED PER EMAR.
--- NOTE | 2021-07-23 03:44 | NUR ---
PATIENT SLEEPING SOUNDLY, UNDISTURBED BY WRITTER, NO APPARENT NEEDS AT THIS TIME.
[2021-07-23 04:03] VITALS: BP 128/69
[2021-07-23 05:09] LABS: MEAN CELL VOLUME 92.2 fL CALC (80.0-100.0); MEAN CORPUSCULAR HGB CONC 33.6 g/dL CAL (32.0-36.0); RED BLOOD COUNT 3.48 mill/uL (4.70-6.10); RED CELL DISTRI WIDTH 13.7 % (11.5-15.5)
[2021-07-23 05:34] LABS: HEMOGLOBIN 10.8 g/dl (14.0-18.0)
[2021-07-23 05:35] LABS: HEMATOCRIT 32.1 % (39.0-50.0)
[2021-07-23 05:42] LABS: CREATININE 1.6 mg/dL (0.7-1.3); MAGNESIUM 1.5 mg/dL (1.6-2.3); POTASSIUM 3.8 mmol/l (3.5-5.1)
--- NOTE | 2021-07-23 07:04 | NUR ---
PATIENT REFUSING ACCU CHECKS STATES "THIS IS THE LAST TIME YOU TAKE IT"
[2021-07-23 07:48] VITALS: BP 110/72
--- NOTE | 2021-07-23 08:00 | NUR ---
PT AWAKE UPON ENTERING ROOM. STATES HAVING PAIN IN ABDOMEN AND LOWER EXTREMETIES. LORATAB GIVEN FOR PAIN. ASSESSMENT PERFORMED AT THIS TIME, A&O X3, LUNGS ARE CLEAR UPON AUSCULATION IN UPPER LOWER LOBES. PT BREATHING EVEN/ UNLABORED. HEART SOUNDS IRREGULAR. PT IS ON TELE MONITOR SHOWING AFIB WITH RATE OF 88. BOWEL SOUNDS ARE ACTIVE IN ALL 4 QUADRANTS. RADIAL AND PEDAL PULSES ARE STRONG EQUALLY BILATERALLY. LEFT PALM SHOWS SMALL ROUND WOUND THAT APPEARS MOIST/ SHINY BRIGHT RED. PT STATES ITS FROM THEIR PSORIASIS. EDEMA ON LOWER LEGS BILATERALLY/ TRACE. OFFERED PT HOLLIE FERNANDA PT DENIED. IV SITE LOCATED #20G LAC, FLUSHED WITH NO RESISTANCE INFUSING NS @100ML/HR. BLOOD SUGAR THIS MORNING 145, NO COVERAGE NEEDED. PT HAS PURPLE/BLUSISH BRUISE ON LEFT CHEEK WITH SLIGHT SCAB/CRUSTING. PT STATING FROM A SPIDER BITE IN JUNE.
--- NOTE | 2021-07-23 09:50 | NUR ---
DR. MOTA AND FREDO CARRINGTON AT BEDSIDE DISCUSSING POC WITH PT.
--- NOTE | 2021-07-23 10:43 | NUR ---
#22G RH INITIATED AT THIS TIME BY Inocencia REED RN X3 ATTEMPTS. HEALTHY AND PATENT WITH GOOD BLOOD RETURN. RECONNECTED MAGNESIUM SULFATE AND IVF. PT TOLERATED WELL.
--- NOTE | 2021-07-23 11:00 | NUR ---
EDUCATED AND OFFERED NO SLIP SOCKS TO PT. PT DENIES NO SLIP SOCKS.
[2021-07-23 11:18] VITALS: BP 113/79
--- NOTE | 2021-07-23 12:16 | NUR ---
PT IN ROOM EATING LUNCH. STATES HAVING GAS PAIN INTERMITTENLY. IV SITE: RAC #20G IS PATENT. TELE MONITOR IN PLACE BEING MONITORED PER ED. CALL LIGHT IS WITHIN REACH.
[2021-07-23] MEDS ORDERED: DICYCLOMINE HCL10 MG PO (14:13)
[2021-07-23] MEDS ORDERED: FLORASTOR250 M1 PO (14:13)
--- NOTE | 2021-07-23 16:22 | NUR ---
Discharge instructions given. Patient verbalizes understanding of same. Discharged in stable condition via Wheelchair to Home with staff. All belongings sent with pt. PT VERBALLY UNDERSTANDS TO RETURN FOR WORSENING SYMPTOMS. TELE MONITOR D/C.
== END 2021-07-23 16:21 | disposition home or self-care (01) ==
LOC: ED 13:52 → ED-I 21:16 → ED 21:29 → MS2 21:30
PROVIDERS: Emergency Medicine; ADMIT Hospitalist; ATTEND Hospitalist
DX: A04.72 Enterocolitis due to Clostridium difficile, not specified as recurrent (principal); N17.9 Acute kidney failure, unspecified; E86.0 Dehydration; I12.9 Hypertensive chronic kidney disease with stage 1 through stage 4 chronic kidney disease, or unspecified chronic kidney disease; E11.22 Type 2 diabetes mellitus with diabetic chronic kidney disease; N18.9 Chronic kidney disease, unspecified; L03.211 Cellulitis of face; J43.9 Emphysema, unspecified; G89.4 Chronic pain syndrome; E83.42 Hypomagnesemia; E66.01 Morbid (severe) obesity due to excess calories; K21.9 Gastro-esophageal reflux disease without esophagitis; M19.90 Unspecified osteoarthritis, unspecified site; I48.91 Unspecified atrial fibrillation; G47.30 Sleep apnea, unspecified; Z68.42 Body mass index [BMI] 45.0-49.9, adult; Z79.84 Long term (current) use of oral hypoglycemic drugs; Z20.822 Contact with and (suspected) exposure to COVID-19
CPT/HCPCS: G0378; J3475

== ENCOUNTER 2021-08-11 19:26 | Emergency (ER) | payer OTHER ==
[~2021-08-11] VITALS: Ht 172.7 cm; Wt 158.0 kg
[~2021-08-11 19:26] MED LIST changes: +DICYCLOMINE HCL10 MG PO; +LOMOTIL2.5 MG PO; +VANCOMYCIN HCL125 M1 PO
[2021-08-11 20:40] LABS: HEMOGLOBIN 13.8 g/dl (14.0-18.0); IMMATURE GRANULOCYTES 0.2 % (0.0-5.0); MEAN CELL VOLUME 92.2 fL CALC (80.0-100.0); MEAN CORPUSCULAR HGB 30.7 pG CALC (26.0-32.0); MEAN CORPUSCULAR HGB CONC 33.3 g/dL CAL (32.0-36.0); NEUT# 10.88 thou/uL (1.82-7.42); RED BLOOD COUNT 4.49 mill/uL (4.70-6.10); RED CELL DISTRI WIDTH 13.8 % (11.5-15.5)
[2021-08-11 20:43] LABS: ALBUMIN 3.5 g/dL (3.2-5.0); BILIRUBIN, TOTAL 0.8 mg/dL (0.0-1.4); CREATININE 1.6 mg/dL (0.7-1.3); HEMATOCRIT 41.4 % (39.0-50.0); POTASSIUM 4.7 mmol/l (3.5-5.1); TOTAL PROTEIN 7.8 g/dL (6.3-8.2)
[2021-08-12 06:38] LABS: URINE BILIRUBIN - DIPSTICK NEGATIVE (NEGATIVE); URINE BLOOD DIPSTICK NEGATIVE (NEGATIVE); URINE COLOR YELLOW; URINE GLUCOSE - DIPSTICK 250 mg/dL (NEGATIVE); URINE KETONE NEGATIVE (NEGATIVE); URINE LEUK ESTERASE NEGATIVE (NEGATIVE); URINE PROTEIN - DIPSTICK TRACE mg/dL (NEG-TRACE); URINE UROBILINOGEN - DIPSTICK 0.2 E.U./dL (0.2)
[2021-08-12 06:39] LABS: URINE NITRITE - DIPSTICK NEGATIVE (Negative)
[2021-08-12 08:15] VITALS: BP 105/53
== END 2021-08-12 08:15 | disposition home or self-care (01) ==
LOC: ED 19:26
PROVIDERS: Family Medicine
DX: K85.90 Acute pancreatitis without necrosis or infection, unspecified (principal); G89.4 Chronic pain syndrome; J43.9 Emphysema, unspecified; E11.9 Type 2 diabetes mellitus without complications; E66.01 Morbid (severe) obesity due to excess calories; I48.91 Unspecified atrial fibrillation; I25.2 Old myocardial infarction; Z79.84 Long term (current) use of oral hypoglycemic drugs
CPT/HCPCS: Q9967

== ENCOUNTER 2021-09-25 21:56 | Emergency (ER) | payer OTHER ==
[~2021-09-25] VITALS: Ht 172.7 cm; Wt 127.0 kg
[2021-09-26 01:32] VITALS: BP 135/90
== END 2021-09-26 04:30 | disposition home or self-care (01) ==
LOC: ED 21:56
DX: G89.4 Chronic pain syndrome (principal); M47.819 Spondylosis without myelopathy or radiculopathy, site unspecified; M16.0 Bilateral primary osteoarthritis of hip; J43.9 Emphysema, unspecified; E11.9 Type 2 diabetes mellitus without complications; I48.91 Unspecified atrial fibrillation; E66.01 Morbid (severe) obesity due to excess calories; G47.30 Sleep apnea, unspecified; I25.2 Old myocardial infarction; Z68.41 Body mass index [BMI] 40.0-44.9, adult; Z79.84 Long term (current) use of oral hypoglycemic drugs

== ENCOUNTER 2022-02-03 02:42 | Observation (INO) | payer OTHER ==
[~2022-02-03] VITALS: Ht 177.8 cm; Wt 145.0 kg
[2022-02-03] VITALS (11 sets, daily range): BP systolic 99–129; BP diastolic 54–93
[2022-02-03 04:28] LABS: IMMATURE GRANULOCYTES 0.5 % (0.0-5.0); MEAN CELL VOLUME 88.3 fL CALC (80.0-100.0); MEAN CORPUSCULAR HGB 29.2 pG CALC (26.0-32.0); MEAN CORPUSCULAR HGB CONC 33.1 g/dL CAL (32.0-36.0); NEUT# 6.84 thou/uL (1.82-7.42); RED BLOOD COUNT 5.62 mill/uL (4.70-6.10); RED CELL DISTRI WIDTH 13.1 % (11.5-15.5)
[2022-02-03 04:32] LABS: HEMATOCRIT 49.6 % (39.0-50.0); HEMOGLOBIN 16.4 g/dl (14.0-18.0)
[2022-02-03 04:44] LABS: ALKALINE PHOSPHATASE 115 u/l (38-126); AMYLASE 106 u/l (30-110); ANION GAP 16 (6-22 (CALC)); BILIRUBIN, TOTAL 0.3 mg/dL (0.0-1.4); BUN 24 mg/dL (9-20); BUN/CREATININE RATIO 16 (12-20 (CALC)); CARBON DIOXIDE 17 mmol/l (22-30); CHLORIDE 105 mmol/l (95-108); CREATININE 1.4 mg/dL (0.7-1.3); GFR FOR AFR.AMER. > 60 ML/MIN (>=60 (CALC)); GFR OTHER RACES 52 ML/MIN (>=60 (CALC)); LIPASE 332 u/l (23-300); POTASSIUM 4.8 mmol/l (3.5-5.1); SGOT/AST 18 u/l (17-59); SODIUM 133 mmol/l (137-146); TOTAL PROTEIN 7.8 g/dL (6.3-8.2)
[2022-02-03 04:55] LABS: MYOGLOBIN 49 ng/mL (0 - 121)
[2022-02-03 07:49] LABS: URINE BILIRUBIN - DIPSTICK NEGATIVE (NEGATIVE); URINE BLOOD DIPSTICK TRACE-INTACT (NEGATIVE); URINE COLOR YELLOW; URINE GLUCOSE - DIPSTICK >=1000 mg/dL (NEGATIVE); URINE KETONE NEGATIVE (NEGATIVE); URINE LEUK ESTERASE NEGATIVE (NEGATIVE); URINE PH 5.5 (4.5-8.0); URINE PROTEIN - DIPSTICK 100 mg/dL (NEG-TRACE); URINE UROBILINOGEN - DIPSTICK 0.2 E.U./dL (0.2)
[2022-02-03 07:54] LABS: URINE NITRITE - DIPSTICK NEGATIVE (Negative)
[2022-02-03 07:57] LABS: URINE BACTERIA FEW hpf; URINE EPITHELIAL CELLS FEW EPI/hpf (0-FEW)
[2022-02-04 03:38] VITALS: BP 99/62
[2022-02-04 03:39] VITALS: BP 109/57
[2022-02-04 05:47] LABS: HEMOGLOBIN 14.5 g/dl (14.0-18.0); MEAN CELL VOLUME 90.5 fL CALC (80.0-100.0); MEAN CORPUSCULAR HGB 29.2 pG CALC (26.0-32.0); MEAN CORPUSCULAR HGB CONC 32.2 g/dL CAL (32.0-36.0); RED BLOOD COUNT 4.97 mill/uL (4.70-6.10); RED CELL DISTRI WIDTH 13.3 % (11.5-15.5)
[2022-02-04 06:04] LABS: ANION GAP 12 (6-22 (CALC)); BUN 21 mg/dL (9-20); BUN/CREATININE RATIO 18 (12-20 (CALC)); CHLORIDE 104 mmol/l (95-108); CREATININE 1.2 mg/dL (0.7-1.3); GFR FOR AFR.AMER. > 60 ML/MIN (>=60 (CALC)); GFR OTHER RACES > 60 ML/MIN (>=60 (CALC)); MAGNESIUM 1.2 mg/dL (1.6-2.3); POTASSIUM 5.1 mmol/l (3.5-5.1); SODIUM 135 mmol/l (137-146)
[2022-02-04 06:06] LABS: CARBON DIOXIDE 24 mmol/l (22-30)
[2022-02-04 06:44] VITALS: BP 112/56
[2022-02-04 10:38] VITALS: BP 107/76
[2022-02-04] MEDS ORDERED: LEVEMIR FL100 UNIT/M SC (12:55)
== END 2022-02-04 14:50 | disposition home or self-care (01) ==
LOC: ED 02:42 → ED-I 06:40 → ED 06:56 → MS2 06:57
PROVIDERS: Emergency Medicine; ADMIT Hospitalist; ATTEND Hospitalist
DX: K52.9 Noninfective gastroenteritis and colitis, unspecified (principal); E11.65 Type 2 diabetes mellitus with hyperglycemia; I12.9 Hypertensive chronic kidney disease with stage 1 through stage 4 chronic kidney disease, or unspecified chronic kidney disease; E11.22 Type 2 diabetes mellitus with diabetic chronic kidney disease; N18.30 Chronic kidney disease, stage 3 unspecified; I25.10 Atherosclerotic heart disease of native coronary artery without angina pectoris; J43.9 Emphysema, unspecified; E66.01 Morbid (severe) obesity due to excess calories; G47.30 Sleep apnea, unspecified; I48.91 Unspecified atrial fibrillation; M54.9 Dorsalgia, unspecified; I25.2 Old myocardial infarction; Z79.891 Long term (current) use of opiate analgesic; Z79.84 Long term (current) use of oral hypoglycemic drugs; Z20.822 Contact with and (suspected) exposure to COVID-19
CPT/HCPCS: G0378; Q9967

== ENCOUNTER 2022-06-11 14:25 | Emergency (ER) | payer OTHER ==
[~2022-06-11] VITALS: Ht 177.8 cm; Wt 150.0 kg
[~2022-06-11 14:25] MED LIST changes: +LEVEMIR FL100 UNIT/M SC
[2022-06-11 14:31] VITALS: BP 116/83
[2022-06-11 14:45] VITALS: BP 133/83
[2022-06-11 14:46] LABS: HEMATOCRIT 47.1 % (39.0-50.0); HEMOGLOBIN 16.1 g/dl (14.0-18.0); IMMATURE GRANULOCYTES 0.3 % (0.0-5.0); MEAN CELL VOLUME 89.9 fL CALC (80.0-100.0); MEAN CORPUSCULAR HGB 30.7 pG CALC (26.0-32.0); MEAN CORPUSCULAR HGB CONC 34.2 g/dL CAL (32.0-36.0); NEUT# 7.77 thou/uL (1.82-7.42); RED BLOOD COUNT 5.24 mill/uL (4.70-6.10); RED CELL DISTRI WIDTH 12.5 % (11.5-15.5)
[2022-06-11 15:01] VITALS: BP 120/64
[2022-06-11 15:06] VITALS: BP 120/64
[2022-06-11 15:19] LABS: ALBUMIN 4.2 g/dL (3.2-5.0); ALKALINE PHOSPHATASE 84 u/l (38-126); ANION GAP 15 (6-22 (CALC)); BUN 23 mg/dL (9-20); BUN/CREATININE RATIO 16 (12-20 (CALC)); CARBON DIOXIDE 28 mmol/l (22-30); CHLORIDE 97 mmol/l (95-108); CREATININE 1.5 mg/dL (0.7-1.3); GFR FOR AFR.AMER. 58 ML/MIN (>=60 (CALC)); GFR OTHER RACES 48 ML/MIN (>=60 (CALC)); LIPASE 256 u/l (23-300); POTASSIUM 4.7 mmol/l (3.5-5.1); SODIUM 135 mmol/l (137-146)
[2022-06-11 15:22] LABS: BILIRUBIN, TOTAL 0.5 mg/dL (0.0-1.4); SGOT/AST 34 u/l (17-59)
[2022-06-11] MEDS ORDERED: CIPROFLOXACN750 MG PO (16:30)
[2022-06-11] MEDS ORDERED: ZOFRAN4 MG/TAB PO (16:30)
[2022-06-11] MEDS ORDERED: IMODIUM2 MG PO (16:30)
== END 2022-06-11 17:27 | disposition home or self-care (01) ==
LOC: ED 14:25
PROVIDERS: Emergency Medicine
DX: K52.9 Noninfective gastroenteritis and colitis, unspecified (principal); E86.0 Dehydration; E11.9 Type 2 diabetes mellitus without complications; E66.01 Morbid (severe) obesity due to excess calories; J43.9 Emphysema, unspecified; G47.30 Sleep apnea, unspecified; I25.2 Old myocardial infarction; I48.91 Unspecified atrial fibrillation; Z79.4 Long term (current) use of insulin; Z79.85 Long-term (current) use of injectable non-insulin antidiabetic drugs

== ENCOUNTER 2023-03-01 03:00 | Emergency (ER) | payer OTHER ==
[~2023-03-01] VITALS: Ht 177.8 cm; Wt 110.0 kg
[~2023-03-01 03:00] MED LIST changes: +CIPROFLOXACN750 MG PO; +IMODIUM2 MG PO; +ZOFRAN4 MG/TAB PO
[2023-03-01] MEDS ORDERED: METOPROLOL TART50 MG PO (03:17)
[2023-03-01] MEDS ORDERED: LOTRISONE EX (04:57)
[2023-03-01] MEDS ORDERED: ERYTHROMYCIN B500 MG PO (04:57)
[2023-03-01] MEDS ORDERED: MEDDOSEPAK PO (04:57)
[2023-03-01 05:49] VITALS: BP 140/88
== END 2023-03-01 05:56 | disposition home or self-care (01) ==
LOC: ED 03:00
DX: L85.3 Xerosis cutis (principal); J43.9 Emphysema, unspecified; I25.2 Old myocardial infarction; E66.01 Morbid (severe) obesity due to excess calories; I48.91 Unspecified atrial fibrillation

== ENCOUNTER 2023-09-08 18:09 | Emergency (ER) | payer OTHER ==
[~2023-09-08] VITALS: Ht 177.8 cm; Wt 145.0 kg
[2023-09-08] VITALS (7 sets, daily range): BP systolic 106–128; BP diastolic 77–85
[~2023-09-08 18:09] MED LIST changes: +ERYTHROMYCIN B500 MG PO; +LOTRISONE EX; +METOPROLOL TART50 MG PO
[2023-09-08] MEDS ORDERED: FLONASE AL50 MCG/ACT (19:52)
[2023-09-08] MEDS ORDERED: MEDDOSEPAK PO (19:52)
[2023-09-08] MEDS ORDERED: ZYRTEC-D ALLERG1 TAB PO (19:55)
== END 2023-09-08 20:09 | disposition home or self-care (01) ==
LOC: ED 18:09
DX: J30.9 Allergic rhinitis, unspecified (principal); L85.3 Xerosis cutis; J43.9 Emphysema, unspecified; I25.2 Old myocardial infarction; E66.01 Morbid (severe) obesity due to excess calories; I48.91 Unspecified atrial fibrillation; Z20.822 Contact with and (suspected) exposure to COVID-19

== ENCOUNTER 2023-09-23 20:18 | Inpatient (IN) | payer OTHER ==
[~2023-09-23] VITALS: Ht 177.8 cm; Wt 113.0 kg
[2023-09-23] VITALS (14 sets, daily range): BP systolic 98–143; BP diastolic 55–90
[~2023-09-23 20:18] MED LIST changes: +FLONASE AL50 MCG/ACT; +ZYRTEC-D ALLERG1 TAB PO
[2023-09-23 21:10] LABS: BASO% 0.4 % (0-3); EOS% 2.1 % (0-8); HEMATOCRIT 44.9 % (39.0-50.0); HEMOGLOBIN 14.9 g/dl (14.0-18.0); IMMATURE GRANULOCYTES 0.8 % (0.0-5.0); LYMPH% 22.4 % (15-41); MEAN CELL VOLUME 92.4 fL CALC (80.0-100.0); MEAN CORPUSCULAR HGB 30.7 pG CALC (26.0-32.0); MEAN CORPUSCULAR HGB CONC 33.2 g/dL CAL (32.0-36.0); MONO% 7.1 % (2-13); NEUT# 6.54 thou/uL (1.82-7.42); NEUT% 67.2 % (42-76); RED BLOOD COUNT 4.86 mill/uL (4.70-6.10); RED CELL DISTRI WIDTH 13.3 % (11.5-15.5)
[2023-09-23 21:21] LABS: ALBUMIN 3.5 g/dL (3.2-5.0); ANION GAP 10 (6-22 (CALC)); BILIRUBIN, TOTAL 0.6 mg/dL (0.2-1.3); BUN 17 mg/dL (9-20); BUN/CREATININE RATIO 19 (12-20 (CALC)); CARBON DIOXIDE 28 mmol/l (22-30); CHLORIDE 99 mmol/l (95-108); CREATININE 0.9 mg/dL (0.7-1.3); GFR FOR AFR.AMER. > 60 ML/MIN (>=60 (CALC)); GFR OTHER RACES > 60 ML/MIN (>=60 (CALC)); POTASSIUM 4.3 mmol/l (3.5-5.1); SGOT/AST 33 u/l (17-59); SODIUM 132 mmol/l (137-146); TOTAL PROTEIN 7.7 g/dL (6.3-8.2)
[2023-09-23 21:25] LABS: ALKALINE PHOSPHATASE 133 u/l (38-126)
[2023-09-24] VITALS (9 sets, daily range): BP systolic 116–136; BP diastolic 62–89
[2023-09-24] MEDS ORDERED: LASIX 20 MG TAB20 MG PO (00:53)
[2023-09-24] MEDS ORDERED: OMEPRAZOLE DR40 MG PO (00:54)
[2023-09-24] MEDS ORDERED: FLONASE AL50 MCG/ACT (14:32)
[2023-09-24] MEDS ORDERED: FOLIC ACID1 M1 PO (14:36)
[2023-09-24] MEDS ORDERED: PIOGLITAZONE HY15 MG PO (14:38)
[2023-09-24] MEDS ORDERED: METFORMIN HCL500 M1 PO (14:40)
[2023-09-25 00:25] VITALS: BP 114/59
[2023-09-25 04:30] VITALS: BP 107/74
[2023-09-25 06:20] VITALS: BP 97/73
[2023-09-25 06:21] LABS: HEMATOCRIT 43.6 % (39.0-50.0); HEMOGLOBIN 14.3 g/dl (14.0-18.0); MEAN CELL VOLUME 93.4 fL CALC (80.0-100.0); MEAN CORPUSCULAR HGB 30.6 pG CALC (26.0-32.0); MEAN CORPUSCULAR HGB CONC 32.8 g/dL CAL (32.0-36.0); RED BLOOD COUNT 4.67 mill/uL (4.70-6.10)
[2023-09-25 06:48] LABS: ALKALINE PHOSPHATASE 112 u/l (38-126); ANION GAP 8 (6-22 (CALC)); BILIRUBIN, TOTAL 0.5 mg/dL (0.2-1.3); BUN 18 mg/dL (9-20); BUN/CREATININE RATIO 18 (12-20 (CALC)); CARBON DIOXIDE 28 mmol/l (22-30); CHLORIDE 100 mmol/l (95-108); GFR FOR AFR.AMER. > 60 ML/MIN (>=60 (CALC)); GFR OTHER RACES > 60 ML/MIN (>=60 (CALC)); MAGNESIUM 1.2 mg/dL (1.6-2.3); POTASSIUM 4.3 mmol/l (3.5-5.1); SGOT/AST 26 u/l (17-59); SODIUM 131 mmol/l (137-146); TOTAL PROTEIN 6.8 g/dL (6.3-8.2)
[2023-09-25 11:33] VITALS: BP 130/80
[2023-09-25 15:32] VITALS: BP 134/73
[2023-09-25 19:38] VITALS: BP 110/65
[2023-09-26 00:11] VITALS: BP 112/70
[2023-09-26 04:48] LABS: BASO% 0.6 % (0-3); HEMATOCRIT 44.9 % (39.0-50.0); IMMATURE GRANULOCYTES 1.4 % (0.0-5.0); LYMPH% 17.8 % (15-41); MEAN CELL VOLUME 93.7 fL CALC (80.0-100.0); MEAN CORPUSCULAR HGB 31.3 pG CALC (26.0-32.0); MEAN CORPUSCULAR HGB CONC 33.4 g/dL CAL (32.0-36.0); MONO% 8.5 % (2-13); NEUT# 5.68 thou/uL (1.82-7.42); NEUT% 69.7 % (42-76); RED BLOOD COUNT 4.79 mill/uL (4.70-6.10)
[2023-09-26 04:53] VITALS: BP 129/87
[2023-09-26 05:02] LABS: ANION GAP 8 (6-22 (CALC)); BILIRUBIN, TOTAL 0.6 mg/dL (0.2-1.3); BUN 16 mg/dL (9-20); BUN/CREATININE RATIO 18 (12-20 (CALC)); CARBON DIOXIDE 28 mmol/l (22-30); CHLORIDE 101 mmol/l (95-108); CREATININE 0.9 mg/dL (0.7-1.3); GFR FOR AFR.AMER. > 60 ML/MIN (>=60 (CALC)); GFR OTHER RACES > 60 ML/MIN (>=60 (CALC)); POTASSIUM 4.3 mmol/l (3.5-5.1); SGOT/AST 43 u/l (17-59); SODIUM 132 mmol/l (137-146); TOTAL PROTEIN 6.9 g/dL (6.3-8.2)
[2023-09-26 05:07] LABS: ALKALINE PHOSPHATASE 169 u/l (38-126); MAGNESIUM 1.7 mg/dL (1.6-2.3)
[2023-09-26 09:08] VITALS: BP 129/87
[2023-09-26] MEDS ORDERED: DOXYCYCLINE100 MG PO (12:07)
[2023-09-26] MEDS ORDERED: OMNICEF300 MG PO (12:08)
== END 2023-09-26 14:36 | disposition home or self-care (01) | DRG 602 ==
LOC: ED 20:18 → ED-I 22:00 → ED 22:35 → ICU 22:36 → MS2 22:36
PROVIDERS: Emergency Medicine; Nurse Practitioner Family; ADMIT Student in an Organized Health Care Education/Training Program; ATTEND Student in an Organized Health Care Education/Training Program
DX: L03.114 Cellulitis of left upper limb (principal); U07.1 COVID-19; R05.9 Cough, unspecified; E11.65 Type 2 diabetes mellitus with hyperglycemia; J44.9 Chronic obstructive pulmonary disease, unspecified; G47.33 Obstructive sleep apnea (adult) (pediatric); G89.4 Chronic pain syndrome; K21.9 Gastro-esophageal reflux disease without esophagitis; E66.01 Morbid (severe) obesity due to excess calories; I25.2 Old myocardial infarction; Z68.35 Body mass index [BMI] 35.0-35.9, adult; Z91.199 Patient's noncompliance with other medical treatment and regimen due to unspecified reason; Z79.84 Long term (current) use of oral hypoglycemic drugs; Z91.148 Patient's other noncompliance with medication regimen for other reason
CPT/HCPCS: J3370; J3475; Q9967